=== PATIENT | female | born 1950 | race Hispanic/Latino ===

== ENCOUNTER 2018-01-31 04:11 | Inpatient (IN) | payer MEDICARE ==
[~2018-01-31] VITALS: Ht 160 cm; Wt 90.7 kg
[2018-01-31] MEDS ORDERED: PANTOPRAZOLE 40 MG 10ML VIAL IV STA (04:19)
[2018-01-31] MEDS ORDERED: ONDANSETRON HCL INJ 2 MG/ML VIAL IV STA (04:19)
[2018-01-31] MEDS ORDERED: ONDANSETRON HCL 4 MG ORAL DISINTEGRATING TAB ONE (04:25)
--- NOTE | 2018-01-31 04:25 | NUR ---
HAVING DIFFICULT TIME STARTING IV, PT HX OF DIFFICULT STICK, ACTIVELY VOMITING. MEDICATED WITH ZOFRAN ODT WHILE CONTINUING TO SEARCH FOR IV ACCESS
[2018-01-31] MEDS ORDERED: DIATRIZOATE MEGL/DIATRIZOA SOD 30 ML BTL PO ONE (04:27)
[2018-01-31] MEDS ORDERED: SODIUM CHLORIDE 0.9% 500ML 500 ML IV ONE (04:30)
[2018-01-31] MEDS ORDERED: SODIUM CHLORIDE 0.9% 1000ML 1,000 ML IV SCH (04:30)
--- NOTE | 2018-01-31 04:35 | NUR ---
18G R EJ STARTED PER SARA FONTANEZ LVN. PT TOLERATED WELL
--- NOTE | 2018-01-31 04:42 | NUR ---
MEDICATED PER ORDERS. PO CONTRAST AT BEDSIDE. PT'S SON SPOKE WITH PT IN [place] REGARDING NEED TO DRINK PO CONTRAST, VERBALIZED UNDERSTANDING.
[2018-01-31] MEDS ORDERED: ONDANSETRON HCL 4 MG ORAL DISINTEGRATING TAB PO ONE (04:45)
[2018-01-31 04:50] LABS: BASOPHILS % 0.1 % (0.0-1.0); EOSINOPHILS % 0.2 % (0.0-6.0); HEMATOCRIT 35.2 % (34.2-44.1); HEMOGLOBIN 10.4 g/dL (12.0-16.0); LYMPHOCYTES # (AUTO) 0.4 (1.0-3.2); LYMPHOCYTES % 3.2 % (18.0-39.1); MEAN CORPUSCULAR HEMOGLOBIN 23.1 pg (28-32); MEAN CORPUSCULAR HGB CONC 29.5 g/dL (31-35); MONOCYTES # (AUTO) 0.5 (0.2-0.8); MONOCYTES % 4.2 % (4.4-11.3); NEUTROPHILS % 91.3 % (38.7-80.0); PLATELET COUNT 174 x10e3/uL (140-360); RED BLOOD COUNT 4.51 x10e6/uL (3.6-5.1); RED CELL DISTRIBUTION WIDTH 19.1 % (11.7-14.4)
[2018-01-31 04:57] LABS: INR 1.33; PROTHROMBIN TIME 17.6 seconds (11.9-14.5)
[2018-01-31] MEDS ORDERED: K DUR10 MEQ PO (04:59)
[2018-01-31] MEDS ORDERED: LASIX40 MG PO (04:59)
[2018-01-31] MEDS ORDERED: CALCITRIOL0.25 MCG PO (04:59)
[2018-01-31] MEDS ORDERED: OMEPRAZOLE40 MG PO (04:59)
[2018-01-31] MEDS ORDERED: MAGNESIUM OXID400 MG PO (04:59)
[2018-01-31] MEDS ORDERED: GABAPENTIN400 MG PO (04:59)
[2018-01-31] MEDS ORDERED: FUROSEMIDE40 MG PO (04:59)
[2018-01-31] MEDS ORDERED: PREDNISONE5 MG PO (04:59)
[2018-01-31] MEDS ORDERED: ULTRAM 50MG50 MG PO (04:59)
[2018-01-31] MEDS ORDERED: MYCOPHENOLATE250 MG PO (04:59)
[2018-01-31] MEDS ORDERED: METFORMIN HCL500 MG PO (04:59)
[2018-01-31] MEDS ORDERED: LOSARTAN POTASS50 MG PO (04:59)
[2018-01-31] MEDS ORDERED: TACROLIMUS1 MG PO (04:59)
[2018-01-31] MEDS ORDERED: SIMVASTATIN20 MG PO (04:59)
[2018-01-31] MEDS ORDERED: LEXAPRO10 MG PO (04:59)
[2018-01-31] MEDS ORDERED: METOCLOPRAMIDE10 MG PO (04:59)
[2018-01-31] MEDS ORDERED: NIFEDIPINE ER30 M1 PO (04:59)
[2018-01-31] MEDS ORDERED: GABAPENTIN300 MG PO (04:59)
[2018-01-31] MEDS ORDERED: CALCIUM CARBON500 MG PO (04:59)
[2018-01-31] MEDS ORDERED: ELIQUIS PO (04:59)
[2018-01-31 05:03] LABS: ALBUMIN 3.5 g/dL (3.5-5.0); ANION GAP 17.7 mmol/L (8-16); CALCIUM 8.7 mg/dL (8.4-10.2); CREATININE, SERUM 1.2 mg/dL (0.57-1.11); POTASSIUM 3.7 mmol/L (3.5-5.1)
[2018-01-31 05:10] LABS: CREATINE KINASE MB 0.7 ng/mL (0-5.0)
--- NOTE | 2018-01-31 05:14 | NUR ---
STATES SHE FEELS BETTER AFTER IVF BOLUS AND MEDICATIONS, DRANK APPROX 50% OF PO CONTRAST. GONE TO CT SCAN
--- NOTE | 2018-01-31 05:40 | NUR ---
16 FR [facility] CATH INSERTED USING STERILE TECHNIQUE PER Robert YEPEZ RN. ASSISTED WITH PROCEDURE ALONG WITH Robert FONTANEZ LVN INTERPRETING. 560ml CLEAR YELLOW/STRAW COLORED RETURN. DR JOHNSON INFORMED, INST TO LEAVE CATH IN PLACE FOR URINARY RETENTION. TOLERATED WELL
--- NOTE | 2018-01-31 05:45 | NUR ---
PT REPORTS PAIN IN LOWER ABD RELIEVED AFTER [facility] CATH INSERTION. AWARE
--- NOTE | 2018-01-31 05:48 | Diagnostic Imaging Report ---
CHEST SINGLE (PORTABLE), 01/31/2018 4:19 AM Technique: CHEST SINGLE (PORTABLE) Comparison: None available. Clinical history: Chest pain Findings: See Impression Impression: Limited by portable technique and soft tissue attenuation. 1. Enlarged cardiomediastinal silhouette 2. Central vascular congestion and/or mild edema. 3. No effusion or pneumothorax. Signed by: Dr Cathi Mitchell MD on 01/31/2018 5:44 AM
--- NOTE | 2018-01-31 05:57 | Diagnostic Imaging Report ---
EXAM: CT ABDOMEN/PELVIS WO DATE: 01/31/2018 4:19 AM INDICATION: ^abd pain n/v/d, oral contrast, pt has kidney transplant ^[id number] ^[id number] ^Y COMPARISON: None TECHNIQUE: The abdomen and pelvis were scanned using a multidetector helical scanner. Coronal and sagittal reformations were obtained. CT low dose techniques were utilized, as applicable. IV Contrast: 0 ml Isovue 300/370 FINDINGS: Lack of IV contrast decreases sensitivity in evaluating abdominal and pelvic organs. LOWER THORAX: Cardiomegaly with small pericardial effusion. Mosaic attenuation. Mild bibasilar opacities may reflect atelectasis and/or edema. LIVER: Enlarged hepatic veins and IVC which can be seen with passive hepatic congestion. Morphologic changes with hypertrophy of the caudate and recanalized paraumbilical vein suggesting underlying cardiac cirrhosis. GALLBLADDER: Surgically absent SPLEEN: Spleen upper limits of normal in size. PANCREAS: Fatty replaced ADRENALS: Indeterminate 3.4 cm left adrenal nodule (attenuation 40). Slightly nodular right adrenal. KIDNEYS: Atrophic need of kidneys. Right lower quadrant renal transplant without hydronephrosis. GI TRACT: There is mild small bowel wall thickening. No evidence of obstruction. Incidental diverticulosis and normal appendix. VESSELS: Diffuse atherosclerotic calcifications PERITONEUM/RETROPERITONEUM: No free air or fluid LYMPH NODES: No lymphadenopathy REPRODUCTIVE ORGANS/BLADDER: Unremarkable SOFT TISSUES: Postsurgical changes along the anterior abdominal wall. Several fat-containing ventral hernias. BONES: No suspicious bone lesions. IMPRESSION: 1. Findings of enteritis, likely infectious or inflammatory. 2. Indeterminate left adrenal nodule (3.4 cm). Recommend nonemergent follow-up CT adrenal mass protocol. 3. Atrophic [place] kidneys. Right lower quadrant renal transplant without hydronephrosis. 4. Findings suspicious for cardiac cirrhosis. Signed by: Dr Cathi Mitchell MD on 01/31/2018 5:54 AM
[2018-01-31 06:04] LABS: CLARITY,URINE SL CLOUDY (CLEAR); COLOR,URINE YELLOW (YELLOW); LEUKOCYTE ESTERASE ,URINE NEGATIVE (NEGATIVE); NITRITE,URINE NEGATIVE (NEGATIVE); PROTEIN,URINE DIPSTICK 1+ (NEGATIVE)
[2018-01-31 06:05] LABS: BILIRUBIN,URINE NEGATIVE (NEGATIVE); KETONES,URINE NEGATIVE (NEGATIVE); URINE UROBILINOGEN 0.2 mg/dL (0.2 - 1)
[2018-01-31] MEDS ORDERED: SODIUM CHLORIDE 0.9% 1000ML 1,000 ML IV ONE (06:15)
[2018-01-31] MEDS ORDERED: DEXTROSE 50% SYRINGE 50 ML IV PRN (06:15)
[2018-01-31] MEDS ORDERED: FUROSEMIDE 40 MG TAB PO PRN (06:15)
[2018-01-31] MEDS ORDERED: METRONIDAZOLE 500MG/NS 100ML 100 ML IV ONE (06:18)
[2018-01-31 06:21] LABS: BACTERIA,URINE RARE /HPF; EPITHELIAL CELLS,URINE RARE /LPF; WBC,URINE (MAN) 0-5 /HPF (0-5)
--- OUTSIDE RECORDS SUMMARY | 2018-01-31 06:21 | XMS REPORT | Clinical Summary ---
Author Author [facility] Organization [facility] Address Unknown Phone Unavailable Care Team Providers Care Animal Ride Manager Name Role Phone Mary Kay Hicks MD PCP Allergies Comments Active Allergy Reactions Severity Noted Date Penicillins Shortness Of High 07/14/2015 Breath Medications End Date Status Medication Sig Dispensed Refills Start Date Active simvastatin (ZOCOR) 20 MG Take 20 mg by 0 tablet mouth nightly. Active magnesium oxide (MAG-OX) Take 400 mg 0 400 mg tablet by mouth 2 (two) times a day. Active escitalopram (LEXAPRO) 20 Take 10 mg by 0 MG tablet mouth every morning. Active tacrolimus (PROGRAF) 1 MG Take 3 mg by 0 capsule mouth 2 (two) times a day. PT takes in the morning and in the evening Active mycophenolate (CELLCEPT) Take 500 mg 0 500 mg tablet by mouth every 12 (twelve) hours. Active predniSONE (DELTASONE) 5 Take 5 mg by 0 mg tablet mouth daily with breakfast. Active calcitriol (ROCALTROL) Take 0.25 mcg 0 0.25 MCG capsule by mouth every morning. Active aspirin (ECOTRIN) 81 MG Take 81 mg by 0 enteric coated tablet mouth every morning. Active apixaban (ELIQUIS) 5 mg Take 5 mg by 0 tablet mouth 2 (two) times a day. Active metoclopramide (REGLAN) Take 0.5 90 tablet 3 10 MG tablet tablets (5 mg 7 total) by mouth nightly. Active NIFEdipine XL (PROCARDIA Take 60 mg by 0 XL) 60 MG 24 hr tablet mouth daily with dinner. Active potassium chloride Take 20 mEq 2 (K-DUR) 20 MEQ CR tablet by mouth 7 daily. Active metFORMIN (GLUCOPHAGE) Take 500 mg 1 500 mg tablet by mouth 2 7 (two) times a day with meals. Active LEVEMIR FLEXTOUCH 100 Inject 15 3 unit/mL (3 mL) insulin Units under 7 pen the skin 2 (two) times a day. Active NOVOLOG FLEXPEN 100 Inject 12 2 unit/mL insulin pen Units under 7 the skin 2 (two) times a day. Active calcium carbonate-vitamin Take 1 tablet 0 D3 (CALCIUM 600 + D,3,) by mouth 2 600 mg(1,500mg) -400 unit (two) times a per tablet day with meals. Active gabapentin (NEURONTIN) Take 300 mg 1 300 mg capsule by mouth 7 daily. Active losartan (COZAAR) 50 MG TAKE 1 TABLET 90 tablet 1 tablet BY MOUTH ONCE 7 DAILY Active furosemide (LASIX) 40 mg Take 40 mg by 0 tablet mouth 2 (two) times a day. Active furosemide (LASIX) 80 mg Take 80 mg by 0 tablet mouth daily as needed. If she weighs over 200lbs she takes 80mg 02/10/2018 Active lidocaine (LIDODERM) 5 % Place 1 patch 30 patch 0 on the skin 8 daily for 30 days. Remove & Discard patch within 12 hours or as directed by MD Active omeprazole (PriLOSEC) 20 Take 20 mg by 0 MG capsule mouth daily. 12/06/2017 Discontinued omeprazole (PriLOSEC) 20 Take 20 mg by 0 MG capsule mouth daily before breakfast. 08/01/2017 Discontinued gabapentin (NEURONTIN) Take 400 mg 0 400 mg capsule by mouth nightly as needed (neuropathy). 05/15/2017 Discontinued metOLazone (ZAROXOLYN) 5 Take 5 mg by 1 MG tablet mouth daily 7 as needed. 03/08/2017 Discontinued ondansetron (ZOFRAN, Take 1 tablet 10 tablet 0 HYDROCHLORIDE,) 4 MG (4 mg total) 7 tablet by mouth every 8 (eight) hours as needed for nausea or vomiting for up to 30 days. 03/08/2017 Discontinued dicyclomine (BENTYL) 20 Take 1 tablet 10 tablet 0 mg tablet (20 mg total) 7 by mouth 2 (two) times a day for 30 days. 02/19/2017 metroNIDAZOLE (FLAGYL) Take 1 tablet 21 tablet 0 500 MG tablet (500 mg 8 total) by mouth 3 (three) times a day for 7 days. 04/07/2017 dicyclomine (BENTYL) 20 Take 1 tablet 10 tablet 0 mg tablet (20 mg total) 8 by mouth 2 (two) times a day for 30 days. 04/07/2017 ondansetron (ZOFRAN, Take 1 tablet 10 tablet 0 HYDROCHLORIDE,) 4 MG (4 mg total) 8 tablet by mouth every 8 (eight) hours as needed for nausea or vomiting for up to 30 days. 04/07/2017 ferrous sulfate 325 (65 Take 1 tablet 60 tablet 0 FE) MG tablet (325 mg 8 total) by mouth 2 (two) times a day with meals for 30 days. 04/07/2017 furosemide (LASIX) 40 mg Take 1 tablet 60 tablet 0 tablet (40 mg total) 8 by mouth 2 (two) times a day for 30 days. 06/16/2017 metOLazone (ZAROXOLYN) 5 Take 1 tablet 8 tablet 0 MG tablet (5 mg total) 8 by mouth 2 (two) times a week for 30 days. Mondays and fridays06/14/2017 furosemide (LASIX) 40 mg Take 1 tablet 60 tablet 0 tablet (40 mg total) 8 by mouth 2 (two) times a day for 30 days. 06/14/2017 furosemide (LASIX) 40 mg Take 1 tablet 60 tablet 0 tablet (40 mg total) 8 by mouth 2 (two) times a day for 30 days. 06/27/2017 Discontinued furosemide (LASIX) 40 mg Take 40 mg by 0 tablet mouth 2 (two) times a day. 07/27/2017 furosemide (LASIX) 40 mg Take 1 tablet 60 tablet 0 tablet (40 mg total) 8 by mouth 2 (two) times a day for 30 days. 09/01/2017 spironolactone Take 1 tablet 30 tablet 0 (ALDACTONE) 100 MG tablet (100 mg 8 total) by mouth daily for 30 days. 01/11/2018 Discontinued pantoprazole (PROTONIX) Take 1 tablet 60 tablet 0 40 MG EC tablet (40 mg total) 8 by mouth 2 (two) times a day for 30 days. 01/18/2018 traMADol (ULTRAM) 50 mg Take 1 tablet 0 tablet (50 mg total) 8 by mouth every 6 (six) hours as needed for severe pain for up to 7 days. 01/15/2018 Discontinued pantoprazole (PROTONIX) Take 1 tablet 60 tablet 0 40 MG EC tablet (40 mg total) 8 by mouth 2 (two) times a day for 30 days. Active Problems Problem Noted Date Acute blood loss anemia 12/04/2017 Hematochezia 12/04/2017 Rectal bleeding 12/02/2017 Hypervolemia 08/24/2017 Acute systolic congestive heart failure 06/25/2017 Hypokalemia 03/06/2017 Pneumonia due to infectious organism 03/04/2017 Weakness 02/10/2017 Acute on chronic congestive heart failure 10/22/2016 Congestive heart failure 08/30/2016 Pneumonia 08/22/2016 Fever 08/22/2016 Dyspnea 08/20/2016 Atrial fibrillation 08/20/2016 Coronary artery disease 08/08/2016 Hypertension 08/08/2016 DM (diabetes mellitus) 08/08/2016 Hyponatremia 08/06/2016 Coag negative Staphylococcus bacteremia 06/05/2016 Kidney transplant status, cadaveric 06/05/2016 Immunosuppressed status 06/05/2016 CKD stage G3a/A2, GFR 45-59 and albumin creatinine ratio 30-299 mg/g 06/05/2016 CHF (congestive heart failure) 06/03/2016 Dehydration 04/11/2016 Encounters Care Team Description Date Type Specialty Eve Miles MD Teqwimuah, Remy, DO Al-Lahiq, Maha, MD Acute systolic congestive heart failure (HCC) (Primary Dx); Renal transplant recipient; Kidney transplant status, cadaveric; CKD stage G3a/A2, GFR 45-59 and albumin creatinine ratio 30-299 mg/g (HCC) 01/15/2018 [facility] General Internal Medicine - Encounter 01/18/2018 Nahid Thibodeaux MD Teqwimuah, Remy, DO Congestive heart failure, unspecified HF chronicity, unspecified heart failure type (HCC) (Primary Dx); SOB (shortness of breath); Renal transplant disorder; Persistent atrial fibrillation (HCC); On continuous oral anticoagulation; Diabetes mellitus of other type with complication, unspecified whether [facility] insulin use (HCC); Secondary hypertension 01/05/2018 Hospital General Surgery - Encounter 01/11/2018 Drew Andrade MD COLONOSCOPY 12/04/2017 Surgery Gastroenterology Odilon Garcia MD 12/04/2017 Anesthesia Gastroenterology Event Katie Beckett PA-C Al-Lahiq, Maha, MD Zachariah, Philip Tomy, MD Teqwimuah, Remy, DO Rectal bleeding (Primary Dx); Chronic systolic congestive heart failure (HCC); Generalized weakness; Anemia, unspecified type; Hematochezia 12/02/2017 [facility] General Internal Medicine - Encounter 12/06/2017 Eve Miles MD Al-Lahiq, Maha, MD Acute systolic congestive heart failure (Primary Dx) 11/06/2017 [facility] General Internal Medicine - Encounter 11/12/2017 Denise Worley MD 11/02/2017 Refill Endocrinology Marine Sharma MD Teqwimuah, Remy, DO Acute on chronic congestive heart failure, unspecified congestive heart failure type (Primary Dx); Acute on chronic diastolic congestive heart failure 10/24/2017 Emergency General Surgery - 10/26/2017 Marine Sharma MD Al-Lahiq, Maha, MD Hypervolemia, unspecified hypervolemia type (Primary Dx); Acute on chronic congestive heart failure, unspecified congestive heart failure type; Other hypervolemia; Kidney transplant status, cadaveric; CKD stage G3a/A2, GFR 45-59 and albumin creatinine ratio 30-299 mg/g; Hypertension, unspecified type 08/24/2017 [facility] General Internal Medicine - Encounter 08/27/2017 Bon Ahumada MD Teqwimuah, Remy, DO Dyspnea, unspecified type (Primary Dx); Hypoxia; Anemia, unspecified type; Pulmonary venous congestion; Acute on chronic congestive heart failure, unspecified congestive heart failure type; Hypertension, unspecified type; H/O kidney transplant; Near syncope; Acute on chronic diastolic congestive heart failure; Weakness 07/30/2017 [facility] General Internal Medicine - Encounter 08/01/2017 Wero Warren DO Al-Lahiq, Maha, MD Acute systolic congestive heart failure (Primary Dx); Pulmonary edema cardiac cause; Kidney transplant status, cadaveric; CKD stage G3a/A2, GFR 45-59 and albumin creatinine ratio 30-299 mg/g 07/04/2017 [facility] General Internal Medicine - Encounter 07/08/2017 Wero Warren DO Teqwimuah, Remy, DO Acute systolic congestive heart failure (Primary Dx); Hypoxia; Acute on chronic diastolic congestive heart failure 06/25/2017 [facility] General Internal Medicine - Encounter 06/27/2017 Arlene Faye MD Abdellatif, Abdul A., MD Teqwimuah, Remy, DO Al-Lahiq, Maha, MD Acute on chronic congestive heart failure, unspecified congestive heart failure type (Primary Dx); Essential hypertension; SOB (shortness of breath); Acute on chronic diastolic congestive heart failure 05/13/2017 Emergency General Surgery - 05/15/2017 Adalgisa Borjas RN Med Refill 04/11/2017 Refill Transplant Marine Sharma MD Teqwimuah, Remy, DO Pneumonia due to infectious organism, unspecified laterality, unspecified part of lung (Primary Dx); Acute on chronic congestive heart failure, unspecified congestive heart failure type; Acute on chronic diastolic congestive heart failure 03/04/2017 [facility] General Internal Medicine - Encounter 03/08/2017 Marine Sharma MD Teqwimuah, Remy, DO Weakness (Primary Dx); Rectal bleeding; Hyperglycemia 02/10/2017 Emergency General Surgery - 02/12/2017 Wero Warren DO Viral gastroenteritis (Primary Dx); Hyperglycemia 02/04/2017 Emergency Emergency Medicine after 01/30/2017 Immunizations Name Dates Previously Given Next Due FLUCELVAX QUAD PF (0.5mL 10/25/2017, 12/09/2016 syringe) Family History Medical History Relation Name Comments Diabetes Brother Hypertension Brother No Known Problems Father Diabetes Mother Hypertension Mother Diabetes Sister Hypertension Sister Relation Name Status Comments Brother Father Mother Sister Social History Date Tobacco Use Types Packs/Day Years Used Never Smoker Smokeless Tobacco: Never Used Alcohol Use Drinks/Week oz/Week Comments No Sex Assigned at Date Recorded Not on file Industry Job Start Date Occupation Not on file Not on file Not on file Travel End Travel History Travel Start No recent travel history available. Last Filed Vital Signs Time Taken Vital Sign Reading 01/18/2018 11:34 AM [employer]OTECTIVE SIGNAL SUPERINTENDENT Blood Pressure 139/65 01/18/2018 11:34 AM PROTECTIVE SIGNAL SUPERINTENDENT Pulse 70 01/18/2018 11:34 AM PROTECTIVE SIGNAL SUPERINTENDENT Temperature 37 C (98.6 F) 01/18/2018 11:34 AM PROTECTIVE SIGNAL SUPERINTENDENT Respiratory Rate 18 01/18/2018 11:34 AM PROTECTIVE SIGNAL SUPERINTENDENT Oxygen Saturation 93% - Inhaled Oxygen - Concentration 01/15/2018 5:37 AM PROTECTIVE SIGNAL SUPERINTENDENT Weight 97.5 kg (215 lb) 01/15/2018 5:37 AM PROTECTIVE SIGNAL SUPERINTENDENT Height 162.6 cm (5' 4") 01/15/2018 5:37 AM PROTECTIVE SIGNAL SUPERINTENDENT Body Mass Index 36.9 Plan of Treatment Health Maintenance Due Date Last Done Comments DIABETIC RETINAL EYE EXAM 1952 DIABETIC FOOT EXAM 1962 CERVICAL CANCER SCREENING 1973 COLON CANCER SCREENING 2002 SHINGLES VACCINES (1 of 2002 2) BREAST CANCER SCREENING 10/04/2015 10/03/2013, 04/07/2010 PNEUMOCOCCAL 2017 POLYSACCHARIDE VACCINE AGE 65 AND OVER PNEUMOCOCCAL-13 2017 INFLUENZA VACCINE Completed 10/25/2017, 12/09/2016 Procedures Comments Procedure Name Priority Date/Time Associated Diagnosis POC GLUCOSE Routine 01/18/2018 11:07 AM PROTECTIVE SIGNAL SUPERINTENDENT POC GLUCOSE Routine 01/18/2018 6:23 AM PROTECTIVE SIGNAL SUPERINTENDENT POC GLUCOSE Routine 01/18/2018 5:54 AM PROTECTIVE SIGNAL SUPERINTENDENT ESTIMATED GFR Routine 01/18/2018 5:20 AM PROTECTIVE SIGNAL SUPERINTENDENT COMPREHENSIVE METABOLIC Routine 01/18/2018 PANEL 5:20 AM PROTECTIVE SIGNAL SUPERINTENDENT POC GLUCOSE Routine 01/17/2018 8:13 PM PROTECTIVE SIGNAL SUPERINTENDENT POC GLUCOSE Routine 01/17/2018 4:18 PM PROTECTIVE SIGNAL SUPERINTENDENT POC GLUCOSE Routine 01/17/2018 11:08 AM PROTECTIVE SIGNAL SUPERINTENDENT POC GLUCOSE Routine 01/17/2018 5:25 AM PROTECTIVE SIGNAL SUPERINTENDENT POC GLUCOSE Routine 01/16/2018 8:11 PM PROTECTIVE SIGNAL SUPERINTENDENT POC GLUCOSE Routine 01/16/2018 3:44 PM PROTECTIVE SIGNAL SUPERINTENDENT POC GLUCOSE Routine 01/16/2018 11:02 AM PROTECTIVE SIGNAL SUPERINTENDENT MAGNESIUM LEVEL Routine 01/16/2018 6:15 AM PROTECTIVE SIGNAL SUPERINTENDENT URIC ACID LEVEL Routine 01/16/2018 6:15 AM PROTECTIVE SIGNAL SUPERINTENDENT PHOSPHORUS LEVEL Routine 01/16/2018 6:15 AM PROTECTIVE SIGNAL SUPERINTENDENT ESTIMATED GFR Routine 01/16/2018 6:15 AM PROTECTIVE SIGNAL SUPERINTENDENT COMPREHENSIVE METABOLIC Routine 01/16/2018 PANEL 6:15 AM PROTECTIVE SIGNAL SUPERINTENDENT POC GLUCOSE Routine 01/16/2018 5:32 AM PROTECTIVE SIGNAL SUPERINTENDENT POC GLUCOSE Routine 01/15/2018 8:25 PM PROTECTIVE SIGNAL SUPERINTENDENT POC GLUCOSE Routine 01/15/2018 4:48 PM PROTECTIVE SIGNAL SUPERINTENDENT TROPONIN Timed 01/15/2018 12:51 PM PROTECTIVE SIGNAL SUPERINTENDENT TROPONIN Timed 01/15/2018 9:17 AM PROTECTIVE SIGNAL SUPERINTENDENT PROTHROMBIN TIME WITH INR Routine 01/15/2018 6:40 AM PROTECTIVE SIGNAL SUPERINTENDENT XR CHEST 1 VW PORTABLE STAT 01/15/2018 6:32 AM PROTECTIVE SIGNAL SUPERINTENDENT SMEAR REVIEW STAT 01/15/2018 6:11 AM PROTECTIVE SIGNAL SUPERINTENDENT ESTIMATED GFR STAT 01/15/2018 6:11 AM PROTECTIVE SIGNAL SUPERINTENDENT B NATRIURETIC PEPTIDE STAT 01/15/2018 6:11 AM PROTECTIVE SIGNAL SUPERINTENDENT TROPONIN STAT 01/15/2018 6:11 AM PROTECTIVE SIGNAL SUPERINTENDENT COMPREHENSIVE METABOLIC STAT 01/15/2018 PANEL 6:11 AM PROTECTIVE SIGNAL SUPERINTENDENT HC COMPLETE BLD COUNT STAT 01/15/2018 W/AUTO DIFF 6:11 AM PROTECTIVE SIGNAL SUPERINTENDENT ECG ED PRELIMINARY Routine 01/15/2018 INTERPRETATION 6:00 AM PROTECTIVE SIGNAL SUPERINTENDENT ECG 12-LEAD STAT 01/15/2018 5:38 AM PROTECTIVE SIGNAL SUPERINTENDENT POC GLUCOSE Routine 01/11/2018 4:24 PM PROTECTIVE SIGNAL SUPERINTENDENT POC GLUCOSE Routine 01/11/2018 12:15 PM PROTECTIVE SIGNAL SUPERINTENDENT SMEAR REVIEW STAT 01/11/2018 8:16 AM PROTECTIVE SIGNAL SUPERINTENDENT ESTIMATED GFR Routine 01/11/2018 8:16 AM PROTECTIVE SIGNAL SUPERINTENDENT HC COMPLETE BLD COUNT STAT 01/11/2018 W/AUTO DIFF 8:16 AM PROTECTIVE SIGNAL SUPERINTENDENT BASIC METABOLIC PANEL Routine 01/11/2018 8:16 AM PROTECTIVE SIGNAL SUPERINTENDENT POC GLUCOSE Routine 01/11/2018 5:23 AM PROTECTIVE SIGNAL SUPERINTENDENT POC GLUCOSE Routine 01/10/2018 11:40 PM PROTECTIVE SIGNAL SUPERINTENDENT POC GLUCOSE Routine 01/10/2018 7:55 PM PROTECTIVE SIGNAL SUPERINTENDENT POC GLUCOSE Routine 01/10/2018 4:57 PM PROTECTIVE SIGNAL SUPERINTENDENT POC GLUCOSE Routine 01/10/2018 11:59 AM PROTECTIVE SIGNAL SUPERINTENDENT SMEAR REVIEW STAT 01/10/2018 10:17 AM PROTECTIVE SIGNAL SUPERINTENDENT ESTIMATED GFR Routine 01/10/2018 10:17 AM PROTECTIVE SIGNAL SUPERINTENDENT HC COMPLETE BLD COUNT STAT 01/10/2018 W/AUTO DIFF 10:17 AM PROTECTIVE SIGNAL SUPERINTENDENT BASIC METABOLIC PANEL Routine 01/10/2018 10:17 AM PROTECTIVE SIGNAL SUPERINTENDENT POC GLUCOSE Routine 01/10/2018 5:59 AM PROTECTIVE SIGNAL SUPERINTENDENT POC GLUCOSE Routine 01/09/2018 8:12 PM PROTECTIVE SIGNAL SUPERINTENDENT POC GLUCOSE Routine 01/09/2018 5:05 PM PROTECTIVE SIGNAL SUPERINTENDENT POC GLUCOSE Routine 01/09/2018 1:44 PM PROTECTIVE SIGNAL SUPERINTENDENT POC GLUCOSE Routine 01/09/2018 1:02 PM PROTECTIVE SIGNAL SUPERINTENDENT POC GLUCOSE Routine 01/09/2018 12:07 [address] [employer]ENT CT CHEST WO CONTRAST Routine 01/09/2018 9:26 AM PROTECTIVE SIGNAL SUPERINTENDENT POC GLUCOSE Routine 01/09/2018 5:42 AM PROTECTIVE SIGNAL SUPERINTENDENT SMEAR REVIEW Routine 01/09/2018 4:57 AM PROTECTIVE SIGNAL SUPERINTENDENT ESTIMATED GFR Routine 01/09/2018 4:57 AM PROTECTIVE SIGNAL SUPERINTENDENT HC COMPLETE BLD COUNT Routine 01/09/2018 W/AUTO DIFF 4:57 AM PROTECTIVE SIGNAL SUPERINTENDENT BASIC METABOLIC PANEL Routine 01/09/2018 4:57 AM PROTECTIVE SIGNAL SUPERINTENDENT POC GLUCOSE Routine 01/08/2018 8:36 PM PROTECTIVE SIGNAL SUPERINTENDENT POC GLUCOSE Routine 01/08/2018 4:42 PM PROTECTIVE SIGNAL SUPERINTENDENT POC GLUCOSE Routine 01/08/2018 11:43 AM PROTECTIVE SIGNAL SUPERINTENDENT POC GLUCOSE Routine 01/08/2018 7:32 AM PROTECTIVE SIGNAL SUPERINTENDENT XR CHEST 1 VW PORTABLE Routine 01/08/2018 6:42 AM PROTECTIVE SIGNAL SUPERINTENDENT ESTIMATED GFR Routine 01/08/2018 4:55 AM PROTECTIVE SIGNAL SUPERINTENDENT PHOSPHORUS LEVEL Routine 01/08/2018 4:55 AM PROTECTIVE SIGNAL SUPERINTENDENT MAGNESIUM LEVEL Routine 01/08/2018 4:55 AM PROTECTIVE SIGNAL SUPERINTENDENT COMPREHENSIVE METABOLIC Routine 01/08/2018 PANEL 4:55 AM PROTECTIVE SIGNAL SUPERINTENDENT POC GLUCOSE Routine 01/07/2018 8:32 PM PROTECTIVE SIGNAL SUPERINTENDENT POC GLUCOSE Routine 01/07/2018 5:22 PM PROTECTIVE SIGNAL SUPERINTENDENT POC GLUCOSE Routine 01/07/2018 11:24 AM PROTECTIVE SIGNAL SUPERINTENDENT POC GLUCOSE Routine 01/07/2018 8:56 AM PROTECTIVE SIGNAL SUPERINTENDENT POC GLUCOSE Routine 01/07/2018 7:28 AM PROTECTIVE SIGNAL SUPERINTENDENT XR CHEST 1 VW PORTABLE Routine 01/07/2018 6:24 AM PROTECTIVE SIGNAL SUPERINTENDENT SMEAR REVIEW Routine 01/07/2018 4:45 AM PROTECTIVE SIGNAL SUPERINTENDENT ESTIMATED GFR Routine 01/07/2018 4:45 AM PROTECTIVE SIGNAL SUPERINTENDENT LACTIC ACID LEVEL Routine 01/07/2018 4:45 AM PROTECTIVE SIGNAL SUPERINTENDENT MAGNESIUM LEVEL Routine 01/07/2018 4:45 AM PROTECTIVE SIGNAL SUPERINTENDENT BASIC METABOLIC PANEL Routine 01/07/2018 4:45 AM PROTECTIVE SIGNAL SUPERINTENDENT HC COMPLETE BLD COUNT Routine 01/07/2018 W/AUTO DIFF 4:45 AM PROTECTIVE SIGNAL SUPERINTENDENT POC GLUCOSE Routine 01/06/2018 8:08 PM PROTECTIVE SIGNAL SUPERINTENDENT ECG 12-LEAD Routine 01/06/2018 7:11 PM PROTECTIVE SIGNAL SUPERINTENDENT LACTIC ACID LEVEL Routine 01/06/2018 5:25 PM PROTECTIVE SIGNAL SUPERINTENDENT BLOOD CULTURE, AEROBIC & Routine 01/06/2018 ANAEROBIC 5:25 PM PROTECTIVE SIGNAL SUPERINTENDENT BLOOD CULTURE, AEROBIC & Routine 01/06/2018 ANAEROBIC 5:25 PM PROTECTIVE SIGNAL SUPERINTENDENT POC GLUCOSE Routine 01/06/2018 4:49 PM PROTECTIVE SIGNAL SUPERINTENDENT POC GLUCOSE Routine 01/06/2018 11:08 AM PROTECTIVE SIGNAL SUPERINTENDENT POC GLUCOSE Routine 01/06/2018 7:12 AM PROTECTIVE SIGNAL SUPERINTENDENT POC GLUCOSE Routine 01/06/2018 2:30 AM PROTECTIVE SIGNAL SUPERINTENDENT URINALYSIS SCREEN AND STAT 01/05/2018 MICROSCOPY, WITH REFLEX 10:33 PM PROTECTIVE SIGNAL SUPERINTENDENT TO CULTURE SMEAR REVIEW STAT 01/05/2018 10:15 PM PROTECTIVE SIGNAL SUPERINTENDENT ESTIMATED GFR STAT 01/05/2018 10:15 PM PROTECTIVE SIGNAL SUPERINTENDENT B NATRIURETIC PEPTIDE STAT 01/05/2018 10:15 PM PROTECTIVE SIGNAL SUPERINTENDENT TROPONIN STAT 01/05/2018 10:15 PM PROTECTIVE SIGNAL SUPERINTENDENT COMPREHENSIVE METABOLIC STAT 01/05/2018 PANEL 10:15 PM PROTECTIVE SIGNAL SUPERINTENDENT PARTIAL THROMBOPLASTIN STAT 01/05/2018 TIME (PTT) 10:15 PM PROTECTIVE SIGNAL SUPERINTENDENT PROTHROMBIN TIME WITH INR STAT 01/05/2018 10:15 PM PROTECTIVE SIGNAL SUPERINTENDENT HC COMPLETE BLD COUNT STAT 01/05/2018 W/AUTO DIFF 10:15 PM PROTECTIVE SIGNAL SUPERINTENDENT XR CHEST 1 VW PORTABLE STAT 01/05/2018 10:11 PM PROTECTIVE SIGNAL SUPERINTENDENT ECG 12-LEAD STAT 01/05/2018 9:54 PM PROTECTIVE SIGNAL SUPERINTENDENT ECG ED PRELIMINARY Routine 01/05/2018 INTERPRETATION 9:50 PM PROTECTIVE SIGNAL SUPERINTENDENT HI CRITICAL CARE, E/M Routine 01/05/2018 30-74 MINUTES 9:50 PM PROTECTIVE SIGNAL SUPERINTENDENT POC GLUCOSE Routine 12/06/2017 11:00 AM CDT POC GLUCOSE Routine 12/06/2017 6:04 AM CDT ESTIMATED GFR Routine 12/06/2017 5:45 AM CDT HC COMPLETE BLD COUNT Routine 12/06/2017 W/AUTO DIFF 5:45 AM CDT BASIC METABOLIC PANEL Routine 12/06/2017 5:45 AM CDT POC GLUCOSE Routine 12/05/2017 8:19 PM CDT POC GLUCOSE Routine 12/05/2017 4:13 PM CDT TRANSFUSE RED BLOOD CELLS Routine 12/05/2017 2:41 PM CDT TRANSFUSE RED BLOOD CELLS Routine 12/05/2017 2:37 PM CDT POC GLUCOSE Routine 12/05/2017 11:12 AM CDT HEMOGLOBIN & HEMATOCRIT Timed 12/05/2017 6:15 AM CDT POC GLUCOSE Routine 12/05/2017 5:39 AM CDT HEMOGLOBIN & HEMATOCRIT Timed 12/05/2017 12:00 AM CDT POC GLUCOSE Routine 12/04/2017 8:06 PM CDT HEMOGLOBIN & HEMATOCRIT Timed 12/04/2017 5:06 PM CDT POC GLUCOSE Routine 12/04/2017 4:29 PM CDT COLONOSCOPY 12/04/2017 GI BLEED 2:30 PM CDT SURGICAL PATHOLOGY Routine 12/04/2017 REQUEST 12:48 PM CDT POC GLUCOSE Routine 12/04/2017 11:22 AM CDT POC GLUCOSE Routine 12/04/2017 5:50 AM CDT SMEAR REVIEW Routine 12/04/2017 5:27 AM CDT ESTIMATED GFR Routine 12/04/2017 5:27 AM CDT HC COMPLETE BLD COUNT Routine 12/04/2017 W/AUTO DIFF 5:27 AM CDT BASIC METABOLIC PANEL Routine 12/04/2017 5:27 AM CDT POC GLUCOSE Routine 12/03/2017 9:08 PM CDT HEMOGLOBIN & HEMATOCRIT Timed 12/03/2017 5:55 PM CDT POC GLUCOSE Routine 12/03/2017 5:01 PM CDT POC GLUCOSE Routine 12/03/2017 11:47 AM CDT POC GLUCOSE Routine 12/03/2017 7:42 AM CDT ESTIMATED GFR Routine 12/03/2017 5:33 AM CDT BASIC METABOLIC PANEL Routine 12/03/2017 5:33 AM CDT HC COMPLETE BLD COUNT Routine 12/03/2017 W/AUTO DIFF 5:33 AM CDT POC GLUCOSE Routine 12/03/2017 2:32 AM CDT PREPARE RBC Timed 12/03/2017 2:26 AM CDT TYPE AND SCREEN Routine 12/03/2017 2:26 AM CDT HEMOGLOBIN & HEMATOCRIT Timed 12/03/2017 2:26 AM CDT HEMOGLOBIN & HEMATOCRIT Timed 12/02/2017 6:10 PM CDT POC GLUCOSE Routine 12/02/2017 6:05 PM CDT ECG ED PRELIMINARY Routine 12/02/2017 INTERPRETATION 4:[address] ABDOMEN PELVIS WO STAT 12/02/2017 CONTRAST 3:05 PM CDT ECG 12-LEAD Routine 12/02/2017 2:43 PM CDT ECG 12-LEAD STAT 12/02/2017 2:41 PM CDT XR CHEST 1 VW PORTABLE STAT 12/02/2017 2:39 PM CDT URINALYSIS SCREEN AND STAT 12/02/2017 MICROSCOPY, WITH REFLEX 2:07 PM CDT TO CULTURE URINE CULTURE STAT 12/02/2017 2:07 PM CDT B NATRIURETIC PEPTIDE STAT 12/02/2017 1:15 PM CDT TROPONIN STAT 12/02/2017 1:15 PM CDT CREATINE KINASE, TOTAL STAT 12/02/2017 (CPK) 1:15 PM CDT SMEAR REVIEW STAT 12/02/2017 1:15 PM CDT LIPASE LEVEL STAT 12/02/2017 1:15 PM CDT ESTIMATED GFR STAT 12/02/2017 1:15 PM CDT COMPREHENSIVE METABOLIC STAT 12/02/2017 PANEL 1:15 PM CDT PARTIAL THROMBOPLASTIN STAT 12/02/2017 TIME (PTT) 1:15 PM CDT PROTHROMBIN TIME WITH INR STAT 12/02/2017 1:15 PM CDT HC COMPLETE BLD COUNT STAT 12/02/2017 W/AUTO DIFF 1:15 PM CDT POC GLUCOSE Routine 11/12/2017 12:58 PM CDT POC GLUCOSE Routine 11/12/2017 6:01 AM CDT POC GLUCOSE Routine 11/12/2017 5:25 AM CDT POC GLUCOSE Routine 11/12/2017 1:15 AM CDT POC GLUCOSE Routine 11/12/2017 12:41 AM CDT POC GLUCOSE Routine 11/11/2017 8:08 PM CDT POC GLUCOSE Routine 11/11/2017 4:40 PM CDT POC GLUCOSE Routine 11/11/2017 12:47 PM CDT POC GLUCOSE Routine 11/11/2017 11:36 AM CDT ESTIMATED GFR Routine 11/11/2017 8:35 AM CDT BASIC METABOLIC PANEL Routine 11/11/2017 8:35 AM CDT FK506 LEVEL Routine 11/11/2017 8:35 AM CDT POC GLUCOSE Routine 11/11/2017 6:57 AM CDT POC GLUCOSE Routine 11/11/2017 6:29 AM CDT POC GLUCOSE Routine 11/10/2017 8:12 PM CDT POC GLUCOSE Routine 11/10/2017 3:53 PM CDT POC GLUCOSE Routine 11/10/2017 11:16 AM CDT POC GLUCOSE Routine 11/10/2017 5:23 AM CDT SMEAR REVIEW Routine 11/10/2017 5:15 AM CDT ESTIMATED GFR Routine 11/10/2017 5:15 AM CDT HC COMPLETE BLD COUNT Routine 11/10/2017 W/AUTO DIFF 5:15 AM CDT BASIC METABOLIC PANEL Routine 11/10/2017 5:15 AM CDT POC GLUCOSE Routine 11/09/2017 9:09 PM CDT POC GLUCOSE Routine 11/09/2017 5:14 PM CDT POC GLUCOSE Routine 11/09/2017 11:12 AM CDT POC GLUCOSE Routine 11/09/2017 6:05 AM CDT POC GLUCOSE Routine 11/09/2017 5:32 AM CDT POC GLUCOSE Routine 11/09/2017 2:41 AM CDT POC GLUCOSE Routine 11/08/2017 9:[address] LUMBAR SPINE WO Routine 11/08/2017 CONTRAST 8:19 PM CDT POC GLUCOSE Routine 11/08/2017 4:10 PM CDT POC GLUCOSE Routine 11/08/2017 3:12 PM CDT POC GLUCOSE Routine 11/08/2017 2:49 PM CDT POC GLUCOSE Routine 11/08/2017 11:16 AM CDT POC GLUCOSE Routine 11/08/2017 6:10 AM CDT POC GLUCOSE Routine 11/08/2017 5:29 AM CDT POC GLUCOSE Routine 11/08/2017 2:00 AM CDT POC GLUCOSE Routine 11/07/2017 9:40 PM CDT POC GLUCOSE Routine 11/07/2017 8:07 PM CDT POC GLUCOSE Routine 11/07/2017 4:01 PM CDT ECHOCARDIOGRAM 2D Routine 11/07/2017 COMPLETE W MMODE SPECTRAL 9:10 AM CDT COLOR DOPPLER (63038) TROPONIN Timed 11/07/2017 8:43 AM CDT SMEAR REVIEW Timed 11/07/2017 4:08 AM CDT ESTIMATED GFR Timed 11/07/2017 4:08 AM CDT HC COMPLETE BLD COUNT Timed 11/07/2017 W/AUTO DIFF 4:08 AM CDT COMPREHENSIVE METABOLIC Timed 11/07/2017 PANEL 4:08 AM CDT TROPONIN Timed 11/07/2017 4:08 AM CDT TROPONIN Timed 11/07/2017 12:05 AM CDT XR CHEST 1 VW PORTABLE STAT 11/06/2017 7:05 PM CDT ESTIMATED GFR STAT 11/06/2017 6:55 PM CDT B NATRIURETIC PEPTIDE STAT 11/06/2017 6:55 PM CDT CREATINE KINASE, TOTAL STAT 11/06/2017 (CPK) 6:55 PM CDT COMPREHENSIVE METABOLIC STAT 11/06/2017 PANEL 6:55 PM CDT PARTIAL THROMBOPLASTIN STAT 11/06/2017 TIME (PTT) 6:55 PM CDT PROTHROMBIN TIME WITH INR STAT 11/06/2017 6:55 PM CDT HC COMPLETE BLD COUNT STAT 11/06/2017 W/AUTO DIFF 6:55 PM CDT ECG 12-LEAD STAT 11/06/2017 6:33 PM CDT ECG ED PRELIMINARY Routine 11/06/2017 INTERPRETATION 6:30 PM CDT POC GLUCOSE Routine 10/26/2017 11:40 AM CDT SMEAR REVIEW Routine 10/26/2017 5:45 AM CDT ESTIMATED GFR Routine 10/26/2017 5:45 AM CDT MAGNESIUM LEVEL Routine 10/26/2017 5:45 AM CDT PHOSPHORUS LEVEL Routine 10/26/2017 5:45 AM CDT COMPREHENSIVE METABOLIC Routine 10/26/2017 PANEL 5:45 AM CDT HC COMPLETE BLD COUNT Routine 10/26/2017 W/AUTO DIFF 5:45 AM CDT POC GLUCOSE Routine 10/26/2017 5:24 AM CDT POC GLUCOSE Routine 10/25/2017 8:48 PM CDT POC GLUCOSE Routine 10/25/2017 3:56 PM CDT POC GLUCOSE Routine 10/25/2017 12:09 PM CDT POC GLUCOSE Routine 10/25/2017 6:22 AM CDT SMEAR REVIEW Timed 10/25/2017 5:57 AM CDT ESTIMATED GFR Timed 10/25/2017 5:57 AM CDT BASIC METABOLIC PANEL Timed 10/25/2017 5:57 AM CDT HC COMPLETE BLD COUNT Timed 10/25/2017 W/AUTO DIFF 5:57 AM CDT TROPONIN Timed 10/25/2017 5:57 AM CDT TROPONIN Timed 10/24/2017 10:44 PM CDT POC GLUCOSE Routine 10/24/2017 10:28 PM CDT TYPE AND SCREEN Routine 10/24/2017 9:00 PM CDT XR CHEST 1 VW PORTABLE STAT 10/24/2017 7:01 PM CDT ECG ED PRELIMINARY Routine 10/24/2017 INTERPRETATION 6:40 PM CDT SMEAR REVIEW STAT 10/24/2017 6:40 PM CDT ESTIMATED GFR STAT 10/24/2017 6:40 PM CDT B NATRIURETIC PEPTIDE STAT 10/24/2017 6:40 PM CDT TROPONIN STAT 10/24/2017 6:40 PM CDT COMPREHENSIVE METABOLIC STAT 10/24/2017 PANEL 6:40 PM CDT PARTIAL THROMBOPLASTIN STAT 10/24/2017 TIME (PTT) 6:40 PM CDT PROTHROMBIN TIME WITH INR STAT 10/24/2017 6:40 PM CDT HC COMPLETE BLD COUNT STAT 10/24/2017 W/AUTO DIFF 6:40 PM CDT ECG 12-LEAD STAT 10/24/2017 6:35 PM CDT POC GLUCOSE Routine 08/27/2017 3:55 PM CDT POC GLUCOSE Routine 08/27/2017 3:20 PM CDT POC GLUCOSE Routine 08/27/2017 11:41 AM CDT POC GLUCOSE Routine 08/27/2017 6:22 AM CDT POC GLUCOSE Routine 08/27/2017 5:37 AM CDT POC GLUCOSE Routine 08/26/2017 8:27 PM CDT POC GLUCOSE Routine 08/26/2017 4:50 PM CDT POC GLUCOSE Routine 08/26/2017 11:01 AM CDT POC GLUCOSE Routine 08/26/2017 5:44 AM CDT POC GLUCOSE Routine 08/26/2017 5:26 AM CDT ZZESTIMATED GFR Routine 08/26/2017 4:34 AM CDT BASIC METABOLIC PANEL Routine 08/26/2017 4:34 AM CDT POC GLUCOSE Routine 08/25/2017 8:07 PM CDT POC GLUCOSE Routine 08/25/2017 4:20 PM CDT CHERRIE TITER Routine 08/25/2017 4:12 PM CDT CENTROMERE ANTIBODY Routine 08/25/2017 4:12 PM CDT C-REACTIVE PROTEIN Routine 08/25/2017 4:12 PM CDT SEDIMENTATION RATE Routine 08/25/2017 4:12 PM CDT CRP HIGH SENSITIVITY Routine 08/25/2017 4:12 PM CDT ANTI-NEUTROPHILIC Routine 08/25/2017 CYTOPLASMIC ABS PANEL 4:12 PM CDT HYPERSENSITIVITY Routine 08/25/2017 PNEUMONITIS I 4:12 PM CDT HYPERSENSITIVITY Routine 08/25/2017 PNEUMONITIS II 4:12 PM CDT SCL-70 ANTIBODY Routine 08/25/2017 4:12 PM CDT RHEUMATOID FACTOR Routine 08/25/2017 4:12 PM CDT DNA AB SCREEN Routine 08/25/2017 4:12 PM CDT CHERRIE Routine 08/25/2017 4:12 PM CDT POC GLUCOSE Routine 08/25/2017 11:41 AM CDT B NATRIURETIC PEPTIDE Routine 08/25/2017 4:17 AM CDT ZZESTIMATED GFR Timed 08/25/2017 4:17 AM CDT BASIC METABOLIC PANEL Timed 08/25/2017 4:17 AM CDT HC COMPLETE BLD COUNT Timed 08/25/2017 W/AUTO DIFF 4:17 AM CDT TROPONIN Timed 08/25/2017 4:17 AM CDT TROPONIN Timed 08/24/2017 11:11 PM CDT XR CHEST 1 VW PORTABLE STAT 08/24/2017 6:55 PM CDT ZZESTIMATED GFR STAT 08/24/2017 6:50 PM CDT B NATRIURETIC PEPTIDE STAT 08/24/2017 6:50 PM CDT TROPONIN STAT 08/24/2017 6:50 PM CDT COMPREHENSIVE METABOLIC STAT 08/24/2017 PANEL 6:50 PM CDT HC COMPLETE BLD COUNT STAT 08/24/2017 W/AUTO DIFF 6:50 PM CDT ECG ED PRELIMINARY Routine 08/24/2017 INTERPRETATION 6:42 PM CDT ECG 12-LEAD Routine 08/24/2017 6:25 PM CDT POC GLUCOSE Routine 08/01/2017 11:21 AM CDT HC COMPLETE BLD COUNT STAT 08/01/2017 W/AUTO DIFF 8:37 AM CDT POC GLUCOSE Routine 08/01/2017 5:24 AM CDT ZZESTIMATED GFR Routine 08/01/2017 5:10 AM CDT BASIC METABOLIC PANEL Routine 08/01/2017 5:10 AM CDT B NATRIURETIC PEPTIDE Routine 08/01/2017 5:10 AM CDT POC GLUCOSE Routine 08/01/2017 2:00 AM CDT POC GLUCOSE Routine 08/01/2017 1:37 AM CDT POC GLUCOSE Routine 08/01/2017 1:13 AM CDT POC GLUCOSE Routine 07/31/2017 8:00 PM CDT ECHOCARDIOGRAM 2D Routine 07/31/2017 COMPLETE W MMODE SPECTRAL 5:15 PM CDT COLOR DOPPLER ([id number]) POC GLUCOSE Routine 07/31/2017 3:55 PM CDT POC GLUCOSE Routine 07/31/2017 10:58 AM CDT INFLUENZA ANTIGEN Routine 07/31/2017 10:35 AM CDT POC GLUCOSE Routine 07/31/2017 5:22 AM CDT ZZESTIMATED GFR Timed 07/31/2017 4:23 AM CDT COMPREHENSIVE METABOLIC Timed 07/31/2017 PANEL 4:23 AM CDT HC COMPLETE BLD COUNT Timed 07/31/2017 W/AUTO DIFF 4:23 AM CDT TROPONIN Timed 07/31/2017 4:23 AM CDT TROPONIN Timed 07/31/2017 12:40 AM CDT URINALYSIS SCREEN AND Routine 07/30/2017 MICROSCOPY, WITH REFLEX 11:25 PM CDT TO CULTURE GRAM STAIN Routine 07/30/2017 11:25 PM CDT URINE CULTURE Routine 07/30/2017 11:25 PM CDT POC GLUCOSE Routine 07/30/2017 11:07 PM CDT BLOOD CULTURE, AEROBIC & Routine 07/30/2017 ANAEROBIC 11:[address] HEAD WO CONTRAST STAT 07/30/2017 10:25 PM CDT BLOOD CULTURE, AEROBIC & Routine 07/30/2017 ANAEROBIC 9:57 PM CDT XR CHEST 1 VW PORTABLE STAT 07/30/2017 9:06 PM CDT ZZESTIMATED GFR STAT 07/30/2017 9:02 PM CDT HC COMPLETE BLD COUNT STAT 07/30/2017 W/AUTO DIFF 9:02 PM CDT B NATRIURETIC PEPTIDE STAT 07/30/2017 9:02 PM CDT TROPONIN STAT 07/30/2017 9:02 PM CDT MAGNESIUM LEVEL STAT 07/30/2017 9:02 PM CDT PHOSPHORUS LEVEL STAT 07/30/2017 9:02 PM CDT COMPREHENSIVE METABOLIC STAT 07/30/2017 PANEL 9:02 PM CDT HI CRITICAL CARE, E/M Routine 07/30/2017 30-74 MINUTES 8:52 PM CDT ECG 12-LEAD STAT 07/30/2017 8:34 PM CDT POC GLUCOSE Routine 07/08/2017 11:02 AM CDT POC GLUCOSE Routine 07/08/2017 7:14 AM CDT POC GLUCOSE Routine 07/08/2017 5:39 AM CDT ZZESTIMATED GFR Routine 07/08/2017 5:30 AM CDT BASIC METABOLIC PANEL Routine 07/08/2017 5:30 AM CDT POC GLUCOSE Routine 07/08/2017 4:18 AM CDT POC GLUCOSE Routine 07/08/2017 3:50 AM CDT POC GLUCOSE Routine 07/07/2017 8:43 PM CDT POC GLUCOSE Routine 07/07/2017 4:17 PM CDT POC GLUCOSE Routine 07/07/2017 10:59 AM CDT POC GLUCOSE Routine 07/07/2017 5:34 AM CDT POC GLUCOSE Routine 07/06/2017 8:37 PM CDT POC GLUCOSE Routine 07/06/2017 4:34 PM CDT POC GLUCOSE Routine 07/06/2017 11:10 AM CDT ZZESTIMATED GFR Routine 07/06/2017 10:56 AM CDT MAGNESIUM LEVEL Routine 07/06/2017 10:56 AM CDT PHOSPHORUS LEVEL Routine 07/06/2017 10:56 AM CDT COMPREHENSIVE METABOLIC Routine 07/06/2017 PANEL 10:56 AM CDT POC GLUCOSE Routine 07/06/2017 6:08 AM CDT POC GLUCOSE Routine 07/05/2017 5:07 PM CDT POC GLUCOSE Routine 07/05/2017 4:37 PM CDT TROPONIN Timed 07/05/2017 4:30 AM CDT XR CHEST 1 VW PORTABLE STAT 07/04/2017 7:15 PM CDT HI CRITICAL CARE, E/M Routine 07/04/2017 30-74 MINUTES 6:35 PM CDT ZZESTIMATED GFR STAT 07/04/2017 6:35 PM CDT B NATRIURETIC PEPTIDE STAT 07/04/2017 6:35 PM CDT TROPONIN STAT 07/04/2017 6:35 PM CDT CREATINE KINASE, TOTAL STAT 07/04/2017 (CPK) 6:35 PM CDT COMPREHENSIVE METABOLIC STAT 07/04/2017 PANEL 6:35 PM CDT HC COMPLETE BLD COUNT STAT 07/04/2017 W/AUTO DIFF 6:35 PM CDT ECG 12-LEAD STAT 07/04/2017 6:16 PM CDT POC GLUCOSE Routine 06/27/2017 11:20 AM CDT POC GLUCOSE Routine 06/27/2017 5:19 AM CDT POC GLUCOSE Routine 06/26/2017 10:42 PM CDT POC GLUCOSE Routine 06/26/2017 8:43 PM CDT POC GLUCOSE Routine 06/26/2017 3:57 PM CDT POC GLUCOSE Routine 06/26/2017 12:39 PM CDT HC COMPLETE BLD COUNT STAT 06/26/2017 W/AUTO DIFF 11:55 AM CDT ZZESTIMATED GFR Routine 06/26/2017 5:45 AM CDT HC COMPLETE BLD COUNT Routine 06/26/2017 W/AUTO DIFF 5:45 AM CDT BASIC METABOLIC PANEL Routine 06/26/2017 5:45 AM CDT POC GLUCOSE Routine 06/26/2017 5:34 AM CDT POC GLUCOSE Routine 06/25/2017 10:33 PM CDT POC GLUCOSE Routine 06/25/2017 8:00 PM CDT POC GLUCOSE Routine 06/25/2017 4:53 PM CDT POC GLUCOSE Routine 06/25/2017 11:02 AM CDT TROPONIN Timed 06/25/2017 9:54 AM CDT B NATRIURETIC PEPTIDE STAT 06/25/2017 9:54 AM CDT XR CHEST 1 VW PORTABLE STAT 06/25/2017 6:32 AM CDT ZZESTIMATED GFR STAT 06/25/2017 6:21 AM CDT TROPONIN STAT 06/25/2017 6:21 AM CDT CREATINE KINASE, TOTAL STAT 06/25/2017 (CPK) 6:21 AM CDT BASIC METABOLIC PANEL STAT 06/25/2017 6:21 AM CDT HC COMPLETE BLD COUNT STAT 06/25/2017 W/AUTO DIFF 6:21 AM CDT ECG ED PRELIMINARY Routine 06/25/2017 INTERPRETATION 6:05 AM CDT HI CRITICAL CARE, E/M Routine 06/25/2017 30-74 MINUTES 6:05 AM CDT ECG 12-LEAD STAT 06/25/2017 5:57 AM CDT ECG 12-LEAD STAT 06/25/2017 5:56 AM CDT POC GLUCOSE Routine 05/15/2017 12:34 PM CDT POC GLUCOSE Routine 05/15/2017 11:43 AM CDT POC GLUCOSE Routine 05/15/2017 5:49 AM CDT ZZESTIMATED GFR STAT 05/15/2017 5:05 AM CDT BASIC METABOLIC PANEL STAT 05/15/2017 5:05 AM CDT B NATRIURETIC PEPTIDE Routine 05/15/2017 5:05 AM CDT POC GLUCOSE Routine 05/14/2017 8:49 PM CDT POC GLUCOSE Routine 05/14/2017 6:[address] CHEST WO CONTRAST Routine 05/14/2017 5:59 PM CDT POC GLUCOSE Routine 05/14/2017 4:38 PM CDT PROCALCITONIN Routine 05/14/2017 2:14 PM CDT POC GLUCOSE Routine 05/14/2017 12:06 PM CDT POC GLUCOSE Routine 05/14/2017 7:19 AM CDT TROPONIN Timed 05/13/2017 9:40 PM CDT B NATRIURETIC PEPTIDE Timed 05/13/2017 6:07 PM CDT ZZESTIMATED GFR Routine 05/13/2017 6:01 PM CDT TROPONIN Routine 05/13/2017 6:01 PM CDT CREATINE KINASE, TOTAL Routine 05/13/2017 (CPK) 6:01 PM CDT COMPREHENSIVE METABOLIC Routine 05/13/2017 PANEL 6:01 PM CDT XR CHEST 1 VW PORTABLE STAT 05/13/2017 5:29 PM CDT ECG 12-LEAD STAT 05/13/2017 5:08 PM CDT ECG ED PRELIMINARY Routine 05/13/2017 INTERPRETATION 4:59 PM CDT SMEAR REVIEW STAT 05/13/2017 3:17 PM CDT HC COMPLETE BLD COUNT STAT 05/13/2017 W/AUTO DIFF 3:17 PM CDT POC GLUCOSE Routine 03/08/2017 10:40 AM PROTECTIVE SIGNAL SUPERINTENDENT ZZESTIMATED GFR Routine 03/08/2017 9:47 AM PROTECTIVE SIGNAL SUPERINTENDENT HC COMPLETE BLD COUNT STAT 03/08/2017 W/AUTO DIFF 9:47 AM PROTECTIVE SIGNAL SUPERINTENDENT BASIC METABOLIC PANEL Routine 03/08/2017 9:47 AM PROTECTIVE SIGNAL SUPERINTENDENT POC GLUCOSE Routine 03/08/2017 6:20 AM PROTECTIVE SIGNAL SUPERINTENDENT POC GLUCOSE Routine 03/08/2017 6:03 AM PROTECTIVE SIGNAL SUPERINTENDENT POC GLUCOSE Routine 03/08/2017 5:38 AM PROTECTIVE SIGNAL SUPERINTENDENT POC GLUCOSE Routine 03/08/2017 5:37 AM PROTECTIVE SIGNAL SUPERINTENDENT POC GLUCOSE Routine 03/08/2017 5:36 AM PROTECTIVE SIGNAL SUPERINTENDENT TRANSFUSE RED BLOOD CELLS Routine 03/08/2017 2:06 AM PROTECTIVE SIGNAL SUPERINTENDENT POC GLUCOSE Routine 03/07/2017 8:05 PM PROTECTIVE SIGNAL SUPERINTENDENT TRANSFUSE RED BLOOD CELLS Routine 03/07/2017 7:35 PM PROTECTIVE SIGNAL SUPERINTENDENT POC GLUCOSE Routine 03/07/2017 4:20 PM PROTECTIVE SIGNAL SUPERINTENDENT PREPARE RBC Timed 03/07/2017 1:02 PM PROTECTIVE SIGNAL SUPERINTENDENT TYPE AND SCREEN Routine 03/07/2017 1:02 PM PROTECTIVE SIGNAL SUPERINTENDENT POC GLUCOSE Routine 03/07/2017 11:20 AM PROTECTIVE SIGNAL SUPERINTENDENT POC GLUCOSE Routine 03/07/2017 5:37 AM PROTECTIVE SIGNAL SUPERINTENDENT ZZESTIMATED GFR Routine 03/07/2017 4:51 AM PROTECTIVE SIGNAL SUPERINTENDENT HC COMPLETE BLD COUNT Routine 03/07/2017 W/AUTO DIFF 4:51 AM PROTECTIVE SIGNAL SUPERINTENDENT BASIC METABOLIC PANEL Routine 03/07/2017 4:51 AM PROTECTIVE SIGNAL SUPERINTENDENT POC GLUCOSE Routine 03/06/2017 7:53 PM PROTECTIVE SIGNAL SUPERINTENDENT POC GLUCOSE Routine 03/06/2017 4:12 PM PROTECTIVE SIGNAL SUPERINTENDENT POC GLUCOSE Routine 03/06/2017 10:58 AM PROTECTIVE SIGNAL SUPERINTENDENT XR CHEST 2 VW Routine 03/06/2017 10:00 AM PROTECTIVE SIGNAL SUPERINTENDENT ZZESTIMATED GFR Routine 03/06/2017 9:24 AM PROTECTIVE SIGNAL SUPERINTENDENT BASIC METABOLIC PANEL Routine 03/06/2017 9:24 AM PROTECTIVE SIGNAL SUPERINTENDENT POC GLUCOSE Routine 03/06/2017 5:59 AM PROTECTIVE SIGNAL SUPERINTENDENT POC GLUCOSE Routine 03/06/2017 4:19 AM PROTECTIVE SIGNAL SUPERINTENDENT POC GLUCOSE Routine 03/06/2017 3:42 AM PROTECTIVE SIGNAL SUPERINTENDENT POC GLUCOSE Routine 03/05/2017 8:10 PM PROTECTIVE SIGNAL SUPERINTENDENT POC GLUCOSE Routine 03/05/2017 4:25 PM PROTECTIVE SIGNAL SUPERINTENDENT POC GLUCOSE Routine 03/05/2017 11:41 AM PROTECTIVE SIGNAL SUPERINTENDENT ECHOCARDIOGRAM 2D Routine 03/05/2017 COMPLETE W MMODE SPECTRAL 11:35 AM PROTECTIVE SIGNAL SUPERINTENDENT COLOR DOPPLER ([id number]) POC GLUCOSE Routine 03/05/2017 5:35 AM PROTECTIVE SIGNAL SUPERINTENDENT ZZESTIMATED GFR Routine 03/05/2017 5:35 AM PROTECTIVE SIGNAL SUPERINTENDENT BASIC METABOLIC PANEL Routine 03/05/2017 5:35 AM PROTECTIVE SIGNAL SUPERINTENDENT HC COMPLETE BLD COUNT Routine 03/05/2017 W/AUTO DIFF 5:35 AM PROTECTIVE SIGNAL SUPERINTENDENT POC GLUCOSE Routine 03/05/2017 2:50 AM PROTECTIVE SIGNAL SUPERINTENDENT TROPONIN Timed 03/04/2017 8:45 PM PROTECTIVE SIGNAL SUPERINTENDENT ECG ED PRELIMINARY Routine 03/04/2017 INTERPRETATION 8:39 PM PROTECTIVE SIGNAL SUPERINTENDENT POC GLUCOSE Routine 03/04/2017 8:29 PM PROTECTIVE SIGNAL SUPERINTENDENT POC GLUCOSE Routine 03/04/2017 5:35 PM PROTECTIVE SIGNAL SUPERINTENDENT TROPONIN Timed 03/04/2017 2:15 PM PROTECTIVE SIGNAL SUPERINTENDENT XR CHEST 1 VW PORTABLE STAT 03/04/2017 10:18 AM PROTECTIVE SIGNAL SUPERINTENDENT BLOOD CULTURE, AEROBIC & Routine 03/04/2017 ANAEROBIC 9:40 AM PROTECTIVE SIGNAL SUPERINTENDENT ZZESTIMATED GFR STAT 03/04/2017 9:20 AM PROTECTIVE SIGNAL SUPERINTENDENT B NATRIURETIC PEPTIDE STAT 03/04/2017 9:20 AM PROTECTIVE SIGNAL SUPERINTENDENT TROPONIN STAT 03/04/2017 9:20 AM PROTECTIVE SIGNAL SUPERINTENDENT COMPREHENSIVE METABOLIC STAT 03/04/2017 PANEL 9:20 AM PROTECTIVE SIGNAL SUPERINTENDENT HC COMPLETE BLD COUNT STAT 03/04/2017 W/AUTO DIFF 9:20 AM PROTECTIVE SIGNAL SUPERINTENDENT BLOOD CULTURE, AEROBIC & Routine 03/04/2017 ANAEROBIC 9:20 AM PROTECTIVE SIGNAL SUPERINTENDENT INFLUENZA ANTIGEN Routine 03/04/2017 9:20 AM PROTECTIVE SIGNAL SUPERINTENDENT ECG 12-LEAD STAT 03/04/2017 9:17 AM PROTECTIVE SIGNAL SUPERINTENDENT POC GLUCOSE Routine 02/12/2017 5:55 AM PROTECTIVE SIGNAL SUPERINTENDENT SMEAR REVIEW Routine 02/12/2017 5:20 AM PROTECTIVE SIGNAL SUPERINTENDENT ZZESTIMATED GFR Routine 02/12/2017 5:20 AM PROTECTIVE SIGNAL SUPERINTENDENT HC COMPLETE BLD COUNT Routine 02/12/2017 W/AUTO DIFF 5:20 AM PROTECTIVE SIGNAL SUPERINTENDENT BASIC METABOLIC PANEL Routine 02/12/2017 5:20 AM PROTECTIVE SIGNAL SUPERINTENDENT SMEAR REVIEW Timed 02/12/2017 12:50 AM PROTECTIVE SIGNAL SUPERINTENDENT HEMOGLOBIN & HEMATOCRIT Timed 02/12/2017 12:50 AM PROTECTIVE SIGNAL SUPERINTENDENT POC GLUCOSE Routine 02/11/2017 8:38 PM PROTECTIVE SIGNAL SUPERINTENDENT HEMOGLOBIN & HEMATOCRIT Timed 02/11/2017 5:56 PM PROTECTIVE SIGNAL SUPERINTENDENT POC GLUCOSE Routine 02/11/2017 5:20 PM PROTECTIVE SIGNAL SUPERINTENDENT URINALYSIS SCREEN AND Routine 02/11/2017 MICROSCOPY, WITH REFLEX 3:30 PM PROTECTIVE SIGNAL SUPERINTENDENT TO CULTURE CT ABDOMEN PELVIS W Routine 02/11/2017 CONTRAST 3:00 PM PROTECTIVE SIGNAL SUPERINTENDENT HI DRAIN SKIN ABSCESS Routine 02/11/2017 SIMPLE 1:18 PM PROTECTIVE SIGNAL SUPERINTENDENT HEMOGLOBIN & HEMATOCRIT Timed 02/11/2017 12:33 PM PROTECTIVE SIGNAL SUPERINTENDENT POC GLUCOSE Routine 02/11/2017 11:23 AM PROTECTIVE SIGNAL SUPERINTENDENT HEMOGLOBIN & HEMATOCRIT Routine 02/11/2017 8:15 AM PROTECTIVE SIGNAL SUPERINTENDENT POC GLUCOSE Routine 02/11/2017 5:58 AM PROTECTIVE SIGNAL SUPERINTENDENT ZZESTIMATED GFR Timed 02/11/2017 4:30 AM PROTECTIVE SIGNAL SUPERINTENDENT BASIC METABOLIC PANEL Timed 02/11/2017 4:30 AM PROTECTIVE SIGNAL SUPERINTENDENT HC COMPLETE BLD COUNT Timed 02/11/2017 W/AUTO DIFF 4:30 AM PROTECTIVE SIGNAL SUPERINTENDENT TROPONIN Timed 02/11/2017 4:30 AM PROTECTIVE SIGNAL SUPERINTENDENT TROPONIN Timed 02/11/2017 12:55 AM PROTECTIVE SIGNAL SUPERINTENDENT POC GLUCOSE Routine 02/10/2017 9:06 PM PROTECTIVE SIGNAL SUPERINTENDENT TROPONIN Timed 02/10/2017 9:05 PM PROTECTIVE SIGNAL SUPERINTENDENT URINALYSIS SCREEN AND STAT 02/10/2017 MICROSCOPY, WITH REFLEX 7:35 PM PROTECTIVE SIGNAL SUPERINTENDENT TO CULTURE GRAM STAIN STAT 02/10/2017 7:35 PM PROTECTIVE SIGNAL SUPERINTENDENT URINE CULTURE STAT 02/10/2017 7:35 PM PROTECTIVE SIGNAL SUPERINTENDENT POC GLUCOSE Routine 02/10/2017 6:39 PM PROTECTIVE SIGNAL SUPERINTENDENT GRAM STAIN Routine 02/10/2017 5:53 PM PROTECTIVE SIGNAL SUPERINTENDENT AEROBIC CULTURE Routine 02/10/2017 5:53 PM PROTECTIVE SIGNAL SUPERINTENDENT ANAEROBIC CULTURE Routine 02/10/2017 5:53 PM PROTECTIVE SIGNAL SUPERINTENDENT XR CHEST 1 VW PORTABLE STAT 02/10/2017 4:32 PM PROTECTIVE SIGNAL SUPERINTENDENT ZZESTIMATED GFR STAT 02/10/2017 4:00 PM PROTECTIVE SIGNAL SUPERINTENDENT B NATRIURETIC PEPTIDE STAT 02/10/2017 4:00 PM PROTECTIVE SIGNAL SUPERINTENDENT TROPONIN STAT 02/10/2017 4:00 PM PROTECTIVE SIGNAL SUPERINTENDENT COMPREHENSIVE METABOLIC STAT 02/10/2017 PANEL 4:00 PM PROTECTIVE SIGNAL SUPERINTENDENT PARTIAL THROMBOPLASTIN STAT 02/10/2017 TIME (PTT) 4:00 PM PROTECTIVE SIGNAL SUPERINTENDENT PROTHROMBIN TIME WITH INR STAT 02/10/2017 4:00 PM PROTECTIVE SIGNAL SUPERINTENDENT HC COMPLETE BLD COUNT STAT 02/10/2017 W/AUTO DIFF 4:00 PM PROTECTIVE SIGNAL SUPERINTENDENT TYPE AND SCREEN Routine 02/10/2017 4:00 PM PROTECTIVE SIGNAL SUPERINTENDENT ECG 12-LEAD STAT 02/10/2017 3:43 PM PROTECTIVE SIGNAL SUPERINTENDENT BEDSIDE GLUCOSE STAT 02/04/2017 10:19 PM PROTECTIVE SIGNAL SUPERINTENDENT POC GLUCOSE Routine 02/04/2017 10:12 PM PROTECTIVE SIGNAL SUPERINTENDENT BEDSIDE GLUCOSE Routine 02/04/2017 9:18 PM PROTECTIVE SIGNAL SUPERINTENDENT POC GLUCOSE Routine 02/04/2017 8:54 PM PROTECTIVE SIGNAL SUPERINTENDENT ZZESTIMATED GFR STAT 02/04/2017 8:05 PM PROTECTIVE SIGNAL SUPERINTENDENT BASIC METABOLIC PANEL STAT 02/04/2017 8:05 PM PROTECTIVE SIGNAL SUPERINTENDENT HC COMPLETE BLD COUNT STAT 02/04/2017 W/AUTO DIFF 8:05 PM PROTECTIVE SIGNAL SUPERINTENDENT after 01/30/2017 Results * POC glucose (01/18/2018 11:07 AM PROTECTIVE SIGNAL SUPERINTENDENT) Only the most recent of 185 results within the time period is included. POC glucose 115 (H) 65 - 99 mg/dL [facility] Comment: [facility] Meter ID: [id number] Store Keeper: Bhupinder Brown Performing Organization Address [facility] Phone Number [address] [place] [address] PATHOLOGY AND GENOMIC MEDICINE [address] * Estimated GFR (01/18/2018 5:20 AM PROTECTIVE SIGNAL SUPERINTENDENT) Only the most recent of 20 results within the time period is included. Estimated GFR 77 mL/min/1.73 m2 [facility] Comment: [facility] CatergoryUnitsInte rpretation G1 >=90 Normal or high G2 60-89Mildly decreased [id number] Mildly to moderately decreased [id number] Moderately to severely decreased G4 15-29Severely decreased G5 <15Kidney failure The eGFR was calculated using the Chronic Kidney Disease Epidemiology Collaboration (CKD-EPI) equation. Interpretation is based on recommendations of the National Kidney Foundation-Kidney Disease Outcomes Quality Initiative (NKF-KDOQI) published in 2014. Specimen Plasma specimen Performing Organization Address [facility] Hospitalcode Phone Number [address] [place] [address] PATHOLOGY AND GENOMIC MEDICINE [address] * Comprehensive metabolic panel (01/18/2018 5:20 AM PROTECTIVE SIGNAL SUPERINTENDENT) Only the most recent of 18 results within the time period is included. Sodium 141 135 - 148 mEq/L [facility] Potassium 3.1 (L) 3.5 - 5.0 mEq/L [facility] Chloride 101 98 - 112 mEq/L [facility] CO2 31 24 - 31 mEq/L [facility] Anion gap 9@ANIO 7 - 15 mEq/L [facility] BUN 21 8 - 23 mg/dL [facility] Creatinine 0.80 0.50 - 0.90 mg/dL [facility] Glucose 55 (L) 65 - 99 mg/dL [facility] Calcium 9.0 8.8 - 10.2 mg/dL [facility] Protein 6.9 6.3 - 8.3 g/dL [facility] Comment: [facility] 4.6-7.0 g/dL 1 week 4.4-7.6 g/dL 7 months-1year 5.1-7.3 g/dL 1-2 years5.6-7 .5 g/dL >3 years6.0-8 .0 g/dL 18-150 6.3-8.3 g/dL Albumin 3.6 3.5 - 5.0 g/dL [facility] A/G ratio 1.1 0.7 - 3.8 [facility] Alkaline phosphatase 61 35 - 104 U/L [facility] AST 11 10 - 35 U/L [facility] ALT 7 5 - 50 U/L [facility] Total bilirubin 1.1 0.0 - 1.2 mg/dL [facility] Specimen Plasma specimen Performing Organization Address [facility] Phone Number [address] [place] [address] PATHOLOGY AND [facility] MEDIC[facility] [address] * Uric acid level (01/16/2018 6:15 AM PROTECTIVE SIGNAL SUPERINTENDENT) Uric acid 9.9 (H) 2.4 - 5.7 mg/dL [facility] Specimen Plasma specimen Performing Organization Address [facility] Phone Number [address] [place] [address] PATHOLOGY AND [address] * Phosphorus level (01/16/2018 6:15 AM PROTECTIVE SIGNAL SUPERINTENDENT) Only the most recent of 5 results within the time period is included. Phosphorus 3.6 2.4 - 4.5 mg/dL [facility] Specimen Plasma specimen Performing Organization Address [facility] Phone Number [address] [place] [address] PATHOLOGY AND GENOMIC MEDICINE [address] * Magnesium level (01/16/2018 6:15 AM PROTECTIVE SIGNAL SUPERINTENDENT) Only the most recent of 6 results within the time period is included. Magnesium 2.0 1.6 - 2.4 mg/dL [facility] Specimen Plasma specimen Performing Organization Address [facility] Phone Number [address] [place] [address] PATHOLOGY AND [facility] MEDIC[facility] [address] * Troponin (01/15/2018 12:51 PM PROTECTIVE SIGNAL SUPERINTENDENT) Only the most recent of 30 results within the time period is included. Troponin <0.300 0.000 - 0.300 ng/mL [facility] Comment: [facility] 0.30 - 1.49 ng/mlMay indicate increased risk of acute coronary syndrome. >=1.5 ng/ml Consistent with acute myocardial infarction. The diagnostic value of a single normal or non-diagnostic result is questionable.Serial samples at 2-6 hour intervals are required to rule out acute myocardial injury. Specimen Plasma specimen Performing Organization Address [facility] Phone Number [address] [place] [address] PATHOLOGY AND [address] * Prothrombin time with INR (01/15/2018 6:40 AM PROTECTIVE SIGNAL SUPERINTENDENT) Only the most recent of 6 results within the time period is included. Prothrombin time 17.6 (H) 11.5 - 14.5 sec [facility] INR 1.5 [facility] Comment: [facility] The International Normalized Ratio (INR) is a therapeutic monitoring tool for patients who are stable on oral anticoagulant therapy. An INR of 2.0-3.0 is suggested for deep vein thrombosis/pulmonary embolism. Specimen Blood Performing Organization Address [facility] Phone Number [address] [place] [address] PATHOLOGY AND [address] * XR Chest 1 Vw Portable (01/15/2018 6:32 AM PROTECTIVE SIGNAL SUPERINTENDENT) Only the most recent of 14 results within the time period is included. Narrative Performed At EXAMINATION:XR CHEST 1 VW PORTABLE [facility] CLINICAL HISTORY:Shortness of breath COMPARISON:01/08/2019 IMPRESSION: Heart and mediastinum are stable. Pulmonary vascular congestion, mildly decreased since prior study. No new consolidations. [facility]-[id number] Procedure Note Hm Interface, Radiology Results Incoming - 01/15/2018 6:37 AM PROTECTIVE SIGNAL SUPERINTENDENT EXAMINATION: XR CHEST 1 VW PORTABLE CLINICAL HISTORY: Shortness of breath COMPARISON: 01/08/2019 IMPRESSION: Heart and mediastinum are stable. Pulmonary vascular congestion, mildly decreased since prior study. No new consolidations. [facility]-[id number] Performing Organization Address City/[facility] Phone Number [facility] [address] [place] [address] * Smear review (01/15/2018 6:11 AM PROTECTIVE SIGNAL SUPERINTENDENT) Only the most recent of 16 results within the time period is included. Platelet slide review Isaías adequate [facility] Anisocytosis Slight [facility] Ovalocytes Occasional [facility] Anisochromia Slight [facility] Performing Organization Address [facility] Phone Number [facility] [place] [id number] [place] [address] [place] [id number] PATHOLOGY AND GENOMIC MEDICINE [facility] [id number] [place] [address] [place] [id number] [facility] * CBC with platelet and differential (01/15/2018 6:11 AM PROTECTIVE SIGNAL SUPERINTENDENT) Only the most recent of 34 results within the time period is included. WBC 6.93 4.50 - 11.00 k/uL [facility] RBC 3.97 (L) 4.20 - 5.50 m/uL [facility] HGB 9.3 (L) 12.0 - 16.0 g/dL [facility] HCT 30.6 (L) 37.0 - 47.0 % [facility] MCV 77.1 (L) 82.0 - 100.0 fL [facility] MCH 23.4 (L) 27.0 - 34.0 pg [facility] MCHC 30.4 (L) 31.0 - 37.0 g/dL [facility] RDW - SD 53.1 37.0 - 55.0 fL [facility] MPV ---- 8.8 - 13.2 fL [facility] Platelet count 197 150 - 400 k/uL [facility] Nucleated RBC 0.00 /100 WBC [facility] Neutrophils 73.1 (H) 39.0 - 69.0 % [facility] Lymphocytes 12.6 (L) 25.0 - 45.0 % [facility] Monocytes 11.4 (H) 0.0 - 10.0 % [facility] Eosinophils 2.0 0.0 - 5.0 % [facility] Basophils 0.3 0.0 - 1.0 % [facility] Specimen Blood Performing Organization Address [facility] [place] [place] [address] PATHOLOGY AND GENOMIC MEDICINE [address] * B natriuretic peptide (01/15/2018 6:11 AM PROTECTIVE SIGNAL SUPERINTENDENT) Only the most recent of 15 results within the time period is included. BNP 387 (H) 0 - 100 pg/mL [facility] Specimen Blood Performing Organization Address [facility] [place] [address] PATHOLOGY AND GENOMIC MEDICINE [address] * ECG ED Preliminary Interpretation - Not an Order (01/15/2018 6:00 AM PROTECTIVE SIGNAL SUPERINTENDENT) Only the most recent of 9 results within the time period is included. Narrative Performed At Eve Miles MD 01/17/20185:39 PM ECG ED Preliminary Interpretation - Not an Order Performed by: Eve Miles MD Authorized by: Eve Miles MD ECG reviewed by ED Physician in the absence of a medical data entry clerk: yes Interpretation: Interpretation: normal Rate: ECG rate:76 ECG rate assessment: normal Rhythm: Rhythm: atrial fibrillation Ectopy: Ectopy: none QRS: QRS axis:Left Conduction: Conduction: normal ST segments: ST segments:Non-specific T waves: T waves: normal * ECG 12 lead (01/15/2018 5:38 AM PROTECTIVE SIGNAL SUPERINTENDENT) Only the most recent of 15 results within the time period is included. Ventricular rate 76 HM MUSE Atrial rate 72 HM MUSE QRSD interval 92 H MUSE QT interval 430 [facility] MUSE QTC interval 483 HM [facility]USE QRS axis 1 -87 [facility] T wave axis 109 [facility] MUSE EKG impression Atrial fibrillation with [facility] MUSE premature ventricular or aberrantly conducted complexes-Left axis deviation-Possible Anterolateral infarct , age undetermined-Abnormal ECG-In automated comparison with ECG of 06-JAN-2018 19:11,-Nonspecific T wave abnormality has replaced inverted T waves in Lateral leads- Narrative Performed At Performing Organization Address City/[facility]/Zipcode Phone Number [facility] MUSE [address] [place] [address] * Basic metabolic panel (01/11/2018 8:16 AM PROTECTIVE SIGNAL SUPERINTENDENT) Only the most recent of 24 results within the time period is included. Sodium 133 (L) 135 - 148 mEq/L [facility] Potassium 4.0 3.5 - 5.0 mEq/L [facility] Chloride 95 (L) 98 - 112 mEq/L [facility] CO2 26 24 - 31 mEq/L [facility] Anion gap 12@ANIO 7 - 15 mEq/L [facility] BUN 32 (H) 8 - 23 mg/dL [facility] Creatinine 1.00 (H) 0.50 - 0.90 mg/dL [facility] Glucose 116 (H) 65 - 99 mg/dL [facility] Calcium 9.4 8.8 - 10.2 mg/dL [facility] Specimen Plasma specimen Performing Organization Address City/[facility]/Zipcode [place] Number [place] [address] [place] [address] PATHOLOGY AND GENOMIC MEDICINE [facility] [id number] [place] [address] [place] [address] [facility] * CT Chest Wo Contrast (01/09/2018 9:26 AM PROTECTIVE SIGNAL SUPERINTENDENT) Only the most recent of 2 results within the time period is included. Narrative Performed At EXAMINATION: HM [facility] CT CHEST WO CONTRAST CLINICAL HISTORY: Shortness of breath TECHNIQUE:Multiple axial images of the chest were obtained without intravenous contrast. The lack of intravenous contrast reduces the sensitivity of detecting solid organ disease and evaluating vasculature. CT images were obtained using low-dose technique with automated exposure control. Sagittal and coronal computerized reformatted images were also obtained. COMPARISON: CT from 05/14/2017 IMPRESSION: 1.There are number of abnormally enlarged mediastinal nodes. Lymph nodes in the prevascular space measure up to 1.3 cm in short axis, previously measuring 1 cm. There is a right paratracheal node measuring 1.3 x 2.2 cm, unchanged. A precarinal node measuring 2.1 x 2.6 cm previously measured 1.6 x 2.5 cm. There is 2.2 x 2.9 cm lymph node posterior to the right lower lobe bronchus previously measuring 1.6 x 2.5 cm. Small axillary nodes present. 2.There is a trace right pleural effusion. 3.Heart is moderately enlarged. There is small pericardial effusion. 4.Main pulmonary artery is dilated measuring 3.5 cm. There is central vascular congestion with mild edema. 5.Thoracic aorta is normal in caliber. Ascending aorta measures 3.1 cm. 6.There is moderate coronary calcification. 7.Limited images of the upper abdomen demonstrate prior cholecystectomy, small hiatal hernia and a 2.7 x 3.3 cm left adrenal mass measuring 47 Hounsfield units. This left adrenal mass measured 2.1 x 2.8 cm on 08/06/2016 and 2 x 2.7 cm on 10/01/2015. Summary: Nonspecific mediastinal adenopathy which is slightly increased. Cardiomegaly with mild congestive failure and pulmonary arterial hypertension Indeterminate 2.7 x 3.3 cm left adrenal mass as noted above. [facility]-[id number] Procedure Note Hm Interface, Radiology Results Incoming - 01/09/2018 10:05 AM PROTECTIVE SIGNAL SUPERINTENDENT EXAMINATION: CT CHEST WO CONTRAST CLINICAL HISTORY: Shortness of breath TECHNIQUE: Multiple axial images of the chest were obtained without intravenous contrast. The lack of intravenous contrast reduces the sensitivity of detecting solid organ disease and evaluating vasculature. CT images were obtained using low-dose technique with automated exposure control. Sagittal and coronal computerized reformatted images were also obtained. COMPARISON: CT from 05/14/2017 IMPRESSION: 1. There are number of abnormally enlarged mediastinal nodes. Lymph nodes in the prevascular space measure up to 1.3 cm in short axis, previously measuring 1 cm. There is a right paratracheal node measuring 1.3 x 2.2 cm, unchanged. A precarinal node measuring 2.1 x 2.6 cm previously measured 1.6 x 2.5 cm. There is 2.2 x 2.9 cm lymph node posterior to the right lower lobe bronchus previously measuring 1.6 x 2.5 cm. Small axillary nodes present. 2. There is a trace right pleural effusion. 3. Heart is moderately enlarged. There is small pericardial effusion. 4. Main pulmonary artery is dilated measuring 3.5 cm. There is central vascular congestion with mild edema. 5. Thoracic aorta is normal in caliber. Ascending aorta measures 3.1 cm. 6. There is moderate coronary calcification. 7. Limited images of the upper abdomen demonstrate prior cholecystectomy, small hiatal hernia and a 2.7 x 3.3 cm left adrenal mass measuring 47 Hounsfield units. This left adrenal mass measured 2.1 x 2.8 cm on 08/06/2016 and 2 x 2.7 cm on 10/01/2015. Summary: Nonspecific mediastinal adenopathy which is slightly increased. Cardiomegaly with mild congestive failure and pulmonary arterial hypertension Indeterminate 2.7 x 3.3 cm left adrenal mass as noted above. [facility]-[id number] Performing Organization Address City/[facility]/Zipcode Phone Number [facility] [address] [place] [address] * Lactic acid level (01/07/2018 4:45 AM PROTECTIVE SIGNAL SUPERINTENDENT) Only the most recent of 2 results within the time period is included. Lactic acid 0.7 0.5 - 2.2 mmol/L [facility] Specimen Plasma specimen Performing Organization Address City/[facility]/Zipcode Phone Number [facility] [id number] [place] [address] [place] [address] PATHOLOGY AND GENOMIC MEDICINE [address] * Blood culture, aerobic & anaerobic (01/06/2018 5:25 PM PROTECTIVE SIGNAL SUPERINTENDENT) Only the most recent of 6 results within the time period is included. Blood culture isolate No growth after 5 days of [facility] incubation. HOSPITAL Comment: Specimen Information Specimen Source: Blood Specimen Site: Arm Right Specimen Blood Performing Organization Address City/[facility]/Zipcode Phone Number [facility] DEPARTMENT OF [address] [place] [address] PATHOLOGY AND GENOMIC MEDICINE [facility] [address] * Urinalysis screen and microscopy, with reflex to culture (01/05/2018 10:33 PM PROTECTIVE SIGNAL SUPERINTENDENT) Only the most recent of 5 results within the time period is included. Specimen site Catheterized [facility] Color, UA Yellow [facility] Appearance, UA Clear [facility] Specific gravity, UA 1.008 1.001 - 1.035 [facility] pH, UA 7.0 5.0 - 8.5 [facility] Protein, UA Negative Negative [facility] Glucose, UA 3+ (A) Negative [facility] Ketones, UA Negative Negative [facility] Bilirubin, UA Negative Negative [facility] Blood, UA Negative Negative [facility] Nitrite, UA Negative Negative [facility] Urobilinogen, UA Negative <2.0 [facility] Leukocyte esterase, UA Negative Negative [facility] WBC, UA 0-5 0 - 4 /HPF [facility] RBC, UA 0-5 0 - 5 /HPF [facility] Bacteria, UA Trace None seen [facility] Yeast, UA None seen [facility] Yeast with pseudohyphae, None seen [facility] Specimen Urine Performing Organization Address City/[facility] [place] [address] [address] [id number] PATHOLOGY AND GENOMIC MEDICINE [facility] [address] [place] [address] [facility] * Partial thromboplastin time, activated (01/05/2018 10:15 PM PROTECTIVE SIGNAL SUPERINTENDENT) Only the most recent of 5 results within the time period is included. PTT 46.4 (H) 23.0 - 36.0 sec [facility] Comment: [facility] PTT therapeutic range for unfractionated heparin is 61.0-112.0 seconds which corresponds to Anti-Xa 0.3-0.7 U/ml. Specimen Blood Performing Organization Address [facility]/Zipcode Phone Number [address] [place] [address] PATHOLOGY AND GENOMIC MEDICINE [facility] [address] [place] [address] [place] [address] [facility] * CRITICAL CARE (01/05/2018 9:50 PM PROTECTIVE SIGNAL SUPERINTENDENT) Narrative Performed At Nahid Thibodeaux MD 01/06/20188:53 PM Critical Care Performed by: Nahid Thibodeaux MD Authorized by: Nahid Thibodeaux MD Critical care provider statement: Critical care time (minutes):48 Critical care time was exclusive of:Separately billable procedures and treating other patients Critical care was necessary to treat or prevent imminent or life-threatening deterioration of the following conditions:Respiratory failure (pulmonary edema on bipap going to ICU) Critical care was time spent personally by me on the following activities:Blood draw for specimens, development of treatment plan with patient or surrogate, ordering and performing treatments and interventions, ordering and review of laboratory studies, ordering and review of radiographic studies, pulse oximetry, re-evaluation of patient's condition, review of old charts, discussions with consultants, discussions with primary provider, examination of patient, evaluation of patient's response to treatment, obtaining history from patient or surrogate and ventilator management Moisés 'yes' if you are taking over critical care for this patient from another provider.: no * Transfuse RBC (12/05/2017 2:41 PM CDT) Only the most recent of 3 results within the time period is included. * Hemoglobin & hematocrit (12/05/2017 6:15 AM CDT) Only the most recent of 10 results within the time period is included. HGB 7.8 (L) 12.0 - 16.0 g/dL [facility] DEPARTMENT OF PATHOLOGY AND GENOMIC MEDICINE HCT 26.4 (L) 37.0 - 47.0 % [facility] DEPARTMENT OF PATHOLOGY AND GENOMIC MEDICINE Specimen Blood Performing Organization Address City/[facility]/Zipcode Phone Number [address] [place] [address] PATHOLOGY AND GENOMIC MEDICINE * Surgical pathology request (12/04/2017 12:48 PM CDT) [facility] DEPARTMENT OF PATHOLOGY AND GENOMIC MEDICINE Surgical pathology report See link below for PDF Lab [facility] DEPARTMENT OF Report PATHOLOGY AND GENOMIC MEDICINE Result status This is Final Report for [facility] DEPARTMENT OF [id number] PATHOLOGY AND GENOMIC MEDICINE Performing Organization Address [facility] Phone Number [address] [place] [address] PATHOLOGY AND GENOMIC MEDICINE * Prepare RBC, 2 Units (12/03/2017 2:26 AM CDT) Only the most recent of 2 results within the time period is included. Product name Red Cells AS1 Leukored Irrad [facility] DEPARTMENT OF PATHOLOGY AND GENOMIC MEDICINE Unit number [id number] [facility] DEPARTMENT OF PATHOLOGY AND GENOMIC MEDICINE Product code [id number] [facility] DEPARTMENT OF PATHOLOGY AND GENOMIC MEDICINE Dispense status Transfused [facility] DEPARTMENT OF PATHOLOGY AND GENOMIC MEDICINE Blood expiration date [id number] [facility] DEPARTMENT OF PATHOLOGY AND GENOMIC MEDICINE Blood type code [address] [facility] DEPARTMENT OF PATHOLOGY AND GENOMIC MEDICINE Blood type O NEGATIVE [facility] DEPARTMENT OF PATHOLOGY AND GENOMIC MEDICINE Product name Red Cells AS1 Leukored Irrad [facility] DEPARTMENT OF PATHOLOGY AND GENOMIC MEDICINE Unit number [id number] [facility] DEPARTMENT OF PATHOLOGY AND GENOMIC MEDICINE Product code [id number] [facility] DEPARTMENT OF PATHOLOGY AND GENOMIC MEDICINE Dispense status Transfused [facility] DEPARTMENT OF PATHOLOGY AND GENOMIC MEDICINE Blood expiration date [id number] [facility] DEPARTMENT OF PATHOLOGY AND GENOMIC MEDICINE Blood type code [address] [facility] DEPARTMENT OF PATHOLOGY AND GENOMIC MEDICINE Blood type O NEGATIVE [facility] DEPARTMENT OF PATHOLOGY AND GENOMIC MEDICINE Performing Organization Address [facility] Phone Number [address] [place] [address] PATHOLOGY AND GENOMIC MEDICINE * Type and screen (12/03/2017 2:26 AM CDT) Only the most recent of 4 results within the time period is included. ABO grouping O [facility] DEPARTMENT OF PATHOLOGY AND GENOMIC MEDICINE Rh type POS [facility] DEPARTMENT OF PATHOLOGY AND GENOMIC MEDICINE Antibody screen NEG [facility] DEPARTMENT OF PATHOLOGY AND GENOMIC MEDICINE Specimen Blood Performing Organization Address [facility] Phone Number [address] [place] [address] PATHOLOGY AND GENOMIC MEDICINE * CT Abdomen Pelvis Wo Contrast (12/02/2017 3:05 PM CDT) Narrative Performed At EXAMINATION:CT ABDOMEN PELVIS WO CONTRAST [facility] CLINICAL HISTORY:rectal bleeding TECHNIQUE:Multiple axial images of the abdomen and pelvis were obtained without intravenous administration of iodinated contrast. Sagittal and coronal computerized reformatted images were also obtained. The lack of intravenous contrast reduces the sensitivity of detecting solid organ disease. Scan was performed using radiation dose reduction techniques. COMPARISON:February 11, 2017 FINDINGS: Marked cardiomegaly and edema is seen in the lower chest. No evidence of bowel obstruction or inflammation. Scattered diverticulosis in the colon without evidence of diverticulitis. No free fluid or free air. Solid organ assessment limited without contrast. Marked atrophy of the [place] kidneys. Status post right lower quadrant renal transplant. Marked diffuse vascular calcifications. A 3.2 cm left adrenal nodule is slightly increased in size dating back to September 2015 study. Periumbilical ventral hernias contain fat. IMPRESSION: No acute findings in the abdomen and pelvis. Cardiomegaly and mild basilar pulmonary edema. Indeterminate 3.2 cm left adrenal nodule showing indolent growth since 2015. Recommend biochemical correlation. Consider dedicated adrenal protocol CT to characterize washout. [facility]-[id number] Procedure Note Interface, Radiology Results Incoming - 12/02/2017 3:16 PM CDT EXAMINATION: CT ABDOMEN PELVIS WO CONTRAST CLINICAL HISTORY: rectal bleeding TECHNIQUE: Multiple axial images of the abdomen and pelvis were obtained without intravenous administration of iodinated contrast. Sagittal and coronal computerized reformatted images were also obtained. The lack of intravenous contrast reduces the sensitivity of detecting solid organ disease. Scan was performed using radiation dose reduction techniques. COMPARISON: February 11, 2017 FINDINGS: Marked cardiomegaly and edema is seen in the lower chest. No evidence of bowel obstruction or inflammation. Scattered diverticulosis in the colon without evidence of diverticulitis. No free fluid or free air. Solid organ assessment limited without contrast. Marked atrophy of the [place] kidneys. Status post right lower quadrant renal transplant. Marked diffuse vascular calcifications. A 3.2 cm left adrenal nodule is slightly increased in size dating back to September 2015 study. Periumbilical ventral hernias contain fat. IMPRESSION: No acute findings in the abdomen and pelvis. Cardiomegaly and mild basilar pulmonary edema. Indeterminate 3.2 cm left adrenal nodule showing indolent growth since 2015. Recommend biochemical correlation. Consider dedicated adrenal protocol CT to characterize washout. [facility]-[id number] Performing Organization Address City/State/Zipcode Phone Number [facility] [address] [place] [address] * Urine culture (12/02/2017 2:07 PM CDT) Only the most recent of 3 results within the time period is included. Urine culture SEE COMMENTComment: [facility] DEPARTMENT OF Bacteriuria screen negative. PATHOLOGY AND GENOMIC MEDICINE Specimen Urine Performing Organization Address [facility] Phone Number [facility] [id number] [place] [address] [place] [address] PATHOLOGY AND [facility] * Lipase level (12/02/2017 1:15 PM CDT) Lipase 13 13 - 60 U/L [facility] DEPARTMENT OF PATHOLOGY AND GENOMIC MEDICINE Specimen Plasma specimen Performing Organization Address [facility] Phone Number [address] [place] [address] PATHOLOGY AND [facility] * Creatine kinase, total (CPK) (12/02/2017 1:15 PM CDT) Only the most recent of 5 results within the time period is included. Creatine kinase 37 26 - 192 U/L [facility] DEPARTMENT OF PATHOLOGY AND GENOMIC MEDICINE Specimen Plasma specimen Performing Organization Address [facility] Phone Number [address] [place] [address] PATHOLOGY AND GENOMIC MEDICINE * FK506 level (11/11/2017 8:35 AM CDT) FK506 level 4.3 ng/mL [facility] DEPARTMENT OF Comment: PATHOLOGY AND Therapeutic range 5-20 ng/mL GENOMIC [facility] for 12 hour trough. The range varies depending on the organ transplanted, time after transplantation and co-administered immunosuppressant therapies. Please use clinical judgment to interpret test result. Test performed using [employer] chemiluminescent microparticle immunoassay for Tacrolimus on the [employer] i System. Specimen Blood Performing Organization Address [facility] Phone Number [facility] DEPARTMENT OF [address] [place] [address] PATHOLOGY AND GENOMIC MEDICINE * CT Lumbar Spine Wo Contrast (11/08/2017 8:19 PM CDT) Narrative Performed At EXAMINATION: CT LUMBAR SPINE WO CONTRAST RADIANT CLINICAL HISTORY: Back thal0eie conservative txpersistent sx, [id number] conservative txpersistent sx COMPARISON:None TECHNIQUE: Axial noncontrast enhanced images of lumbar spine was performed with coronal sagittal reconstruction algorithms. CT scans are performed using radiation dose reduction techniques. Technical factors are evaluated and adjusted to ensure appropriate moderation of exposure. Automated dose management technology is applied to adjust radiation exposure while achieving a diagnostic quality image. FINDINGS: There are degenerative changes of both sacroiliac joints with a large amount of vacuum density in the joint spaces and some sclerosis in the adjacent bone and tiny ventral osteophytes. There is diffuse decreased bone density. There is mild inward concavity in the endplates. I cannot exclude recent endplate fractures. If a recent endplate fracture is suspected, this would be best evaluated with an MRI exam or a triple-phase bone scan. L5-S1: There is mild posterior disc space narrowing. There is bulge and facet hypertrophic changes. 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 There is no significant central canal stenosis. There is mild foraminal stenosis. L4-5: There is mild posterior disc space narrowing. There is bulge indenting the anterior subarachnoid space. There is facet and ligamentum flavum hypertrophic changes. There is mild trefoil-shape canal stenosis and moderate foraminal stenosis. L3-4: There is bulge, facet and ligamentum flavum hypertrophic changes. There is mild central canal stenosis and mild to moderate foraminal stenosis. L2-3: There is vacuum density in the anterior inferior disc. There is greater posterior disc space narrowing. There is bulge and facet hypertrophic changes without significant canal or foraminal stenosis. L1-2: There is vacuum density in the anterior inferior disc. There is mild bulge and facet hypertrophic changes without significant canal or foraminal stenosis. There is vacuum density in the anterior T11-T12 disc. CT is limited for evaluation of cord and ligament abnormalities as well as soft tissue structures in the canal and foramen including hemorrhage and protrusion and narrowing of the subarachnoid space. There is calcification of the goldberg of many of the arteries. IMPRESSION: 1. Degenerative changes in the sacroiliac joints and lumbar spine. 2. Mild nonspecific inward concavity of the lumbar spine endplates and I cannot exclude recent endplate fractures. If recent endplate fracture is suspected, this would be best evaluated with an MRI exam. If the patient cannot undergo MRI exam, then a triple-phase bone scan can be performed. 3. 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 [id number] Procedure Note [facility], Radiology Results - 11/09/2017 8:22 AM CDT EXAMINATION: CT LUMBAR SPINE WO CONTRAST CLINICAL HISTORY: Back pain 6wks conservative tx persistent sx, Radiculopathy 6wks conservative tx persistent sx COMPARISON: None TECHNIQUE: Axial noncontrast enhanced images of lumbar spine was performed with coronal sagittal reconstruction algorithms. CT scans are performed using radiation dose reduction techniques. Technical factors are evaluated and adjusted to ensure appropriate moderation of exposure. Automated dose management technology is applied to adjust radiation exposure while achieving a diagnostic quality image. FINDINGS: There are degenerative changes of both sacroiliac joints with a large amount of vacuum density in the joint spaces and some sclerosis in the adjacent bone and tiny ventral osteophytes. There is diffuse decreased bone density. There is mild inward concavity in the endplates. I cannot exclude recent endplate fractures. If a recent endplate fracture is suspected, this would be best evaluated with an MRI exam or a triple-phase bone scan. L5-S1: There is mild posterior disc space narrowing. There is bulge and facet hypertrophic changes. 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 There is no significant central canal stenosis. There is mild foraminal stenosis. L4-5: There is mild posterior disc space narrowing. There is bulge indenting the anterior subarachnoid space. There is facet and ligamentum flavum hypertrophic changes. There is mild trefoil-shape canal stenosis and moderate foraminal stenosis. L3-4: There is bulge, facet and ligamentum flavum hypertrophic changes. There is mild central canal stenosis and mild to moderate foraminal stenosis. L2-3: There is vacuum density in the anterior inferior disc. There is greater posterior disc space narrowing. There is bulge and facet hypertrophic changes without significant canal or foraminal stenosis. L1-2: There is vacuum density in the anterior inferior disc. There is mild bulge and facet hypertrophic changes without significant canal or foraminal stenosis. There is vacuum density in the anterior T11-T12 disc. CT is limited for evaluation of cord and ligament abnormalities as well as soft tissue structures in the canal and foramen including hemorrhage and protrusion and narrowing of the subarachnoid space. There is calcification of the goldberg of many of the arteries. IMPRESSION: 1. Degenerative changes in the sacroiliac joints and lumbar spine. 2. Mild nonspecific inward concavity of the lumbar spine endplates and I cannot exclude recent endplate fractures. If recent endplate fracture is suspected, this would be best evaluated with an MRI exam. If the patient cannot undergo MRI exam, then a triple-phase bone scan can be performed. 3. 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 [id number] Performing Organization Address City/State/Zipcode Phone Number [facility] [address] [place] [address] * Echocardiogram complete w contrast and 3D if needed (11/07/2017 9:10 AM CDT) Velocity Ratio (V1/V2) 0.72 m/s [facility] IVS,d 1.06 cm [facility] EF 63.84 % [facility] LA volume 47.0 cm3 [facility] LVPWD,d 1.05 cm [facility] AoV Mean PG 4.93 mmHg [facility] AV LVOT peak gradient 4.30 mmHg [facility] MV mean gradient 3.39 mmHg [facility] MV valve area p 1/2 3.98 cm2 [facility] method E/A ratio 4.81 [facility] E wave decelartion time 188.09 msec [facility] LVOT Diam,S 1.97 cm [facility] LVOT area 3.05 cm2 [facility] LVOT Vmax 1.04 m/s [facility] LVOT VTI 0.22 m [facility] AoV Peak PG 8.43 mmHg [facility] MV Peak E Blaine 1.78 m/s [facility] MV stenosis pressure 1/2 55.23 ms [facility] time MV Peak A Blaine 0.37 m/s [facility] LV Vol,s A2C 32.56 mL [facility] LV Vol,d A2C 81.41 mL [facility] AoV Area, Vmax 2.17 cm2 [facility] AoV Area, VTI 2.08 cm2 [facility] AoV Vmax 1.45 m/s [facility] LA Area d A4C 79 cm2 [facility] LV,d 4.86 cm [facility] LV,s 3.17 cm [facility] LV Vol,d A4C 82.59 ml [facility] LV Vol,s A4C 30.44 ml [facility] TR Vpeak 3.98 mm/s [facility] MV E A ratio 4.79 mmHg [facility] RA pressure 10.00 mmHg [facility] TR pk grad 63.45 mmHg [facility] MR peak grad 13.18 mmHg [facility] RVSP 73.45 mmHg [facility] LV SYS VOL 40.04 ml [facility] LV GROVES VOL 110.74 ml [facility] LA diam s 5.40 cm [facility] LA Vol MOD A4C 78.71 ml [facility] LV SV Teich 2D 70.71 ml [facility] LVOT SI 33.77 ml/m2 [facility] MV Vmax 1.82 m [facility] MV VTI Tips 0.39 m [facility] AoV Cusp sep 1.91 [facility] Aortic Root 2.86 cm [facility] AoV Vmn 1.07 [facility] IVS s 2D 1.30 [facility] LA Ao Ratio Mmode 1.89 [facility] HI End Groves Grad 11.10 [facility] HI End Diat Blaine 1.67 [facility] D E excurs 2.10 [facility] E f slope 0.12 [facility] E prime lat 0.14 [facility] E jojo sept 0.08 [facility] PV acc T slope 8.20 [facility] PV AT 93.43 msec [facility] AoV VTI 0.32 m [facility] LV EF,A2C 60.00 % [facility] LV EF,A4C 63.14 % [facility] LV EF,BP 62.94 % [facility] Charly [place],d A2C 6.79 cm [facility] Charly [place],d A4C 7.73 cm [facility] Charly [place],s A2C 5.99 cm [facility] Charly [place],s A4C 6.34 cm [facility] LV SV,A2C 48.85 % [facility] LV SV,A4C 52.15 % [facility] LV Vol,d BP 87.30 ml [facility] LV Vol,s BP 32.35 nl [facility] LVOT Vmn 0.68 [facility] Pt Size 162.56 [facility] Pt Wt 94.35 [facility] LVOT mean grad 2.09 mmHg [facility] LVPW s PLAX 1.33 cm [facility] MV Decel slope 9.45 m/s2 [facility] Narrative Performed At [facility] The left ventricle chamber size is normal. There is borderline left ventricular concentric hypertrophy. Left Ventricular ejection fraction is 60 - 65%. There is pericardial effusion. The mitral valve appears calcified. Unable to assess diastolic filling. Performing Organization Address City/State/Zipcode Phone Number [facility] [address] [place] [address] * Estimated GFR (08/26/2017 4:34 AM CDT) Only the most recent of 22 results within the time period is included. GFR Non Af Amer 63 mL/min/1.[address] [facility] DEPARTMENT OF PATHOLOGY AND GENOMIC MEDICINE GFR Af Amer 76 mL/min/1.[address] [facility] DEPARTMENT OF Comment: PATHOLOGY AND Chronic kidney disease: <60 GENOMIC MEDICINE mL/min/1.73m2 Kidney failure: <15 mL/min/1.73m2 The estimated GFR is calculated from the IDMS-traceable Modification of Diet in Renal Disease Equation. The accuracy of the calculation is poor when the creatinine is normal. Calculated values >90 mL/min/1.73m2 are not reported. This equation has not been validated in children (<18 years), women, the elderly (>70 years), or ethnic groups other than Caucasians and Americans. Specimen Plasma specimen Performing Organization Address City/[facility]/Zipcode Phone Number [facility] [address] [place] [address] PATHOLOGY AND GENOMIC MEDICINE * Scl-70 antibody (08/25/2017 4:12 PM CDT) Scleroderma SCL-70 Ab <0.2 0.0 - 0.9 [facility] DEPARTMENT OF PATHOLOGY AND GENOMIC MEDICINE Scl-70 antibody interp Negative [facility] DEPARTMENT OF Comment: PATHOLOGY AND Anti-Scl-70 (topoisomerase I) GENOMIC MEDICINE antibodies are found in patients with systemic sclerosis (SSc or scleroderma), and have been reported to be predictive of diffuse cutaneous involvement. Anti-Scl-70 antibodies may also be present in patients with systemic lupus erythematosus (SLE). Specimen Serum Performing Organization Address City/State/Zipcode Phone Number [facility] DEPARTMENT OF [address] [place] [address] PATHOLOGY AND GENOMIC MEDICINE * Centromere antibody (08/25/2017 4:12 PM CDT) Centromere antibody <0.2 0.0 - 0.9 [facility] DEPARTMENT OF PATHOLOGY AND GENOMIC MEDICINE Centromere antibody Negative [facility] DEPARTMENT OF interp Comment: PATHOLOGY AND Anti-centromere antibodies are GENOMIC MEDICINE found in patients with systemic sclerosis (SSc or scleroderma), especially for those with limited cutaneous or CREST syndrome. Anti-centromere antibodies may also be found in patients with other rheumatic or connective tissue diseases. Specimen Serum Performing Organization Address City/[facility]/Zipcode Phone Number [facility] DEPARTMENT OF [address] [place] [id number] PATHOLOGY AND GENOMIC MEDICINE * Hypersensitivity pneumonitis II (08/25/2017 4:12 PM CDT) Aspergillus flavus None Detected None-Detected [facility] Comment: Testing includes antibodies directed at Aspergillus flavus, Aspergillus fumigatus #2, Aspergillus fumigatus #3, Saccharomonospora viridis, Thermoactinomyces candidus and Thermoactinomyces sacchari. Aspergillus fumigatus #2 None Detected None-Detected [facility] Aspergillus fumigatus #3 None Detected None-Detected [facility] Saccharomonospora viridis None Detected None-Detected [facility] Thermoactinomyces None Detected None-Detected [facility] candidus Thermoactinomyces None Detected None-Detected [facility] saccharii Comment: TEST INFORMATION: T. sacchari Ab, Precipitin Test developed and characteristics determined by [facility]. See Compliance Statement A: [facility]/ Performed by [facility], [address] [place] [address] [email or web address], Silviano Luciano MD - Lab. Director Specimen Serum Performing Organization Address [facility] Phone Number [facility] [address] [place] [address] * Hypersensitivity pneumonitis I (08/25/2017 4:12 PM CDT) Aspergillus fumigatus #1 None Detected None-Detected [facility] Aspergillus fumigatus #6 None Detected None-Detected [facility] Aureobasidium pullulans None Detected None-Detected [facility] Comment: Testing includes antibodies directed at Aureobasidium pullulans, Aspergillus fumigatus #1, Aspergillus fumigatus #6, Micropolyspora faeni, [place] Serum and Thermoactinomyces vulgaris #1. [place] serum Detected (A) None-Detected [facility] Micropolyspora faeni None Detected None-Detected [facility] Thermoactinomyces None Detected None-Detected [facility] vulgaris #1 Comment: Performed by [facility], [address] [place], [place] [id number] [email or web address], Silviano Luciano MD - Lab. Director Specimen Serum Performing Organization Address [facility] Phone Number [facility] [address] [place] [phone] * DNA Ab screen (08/25/2017 4:12 PM CDT) DNA Ab screen Not Detected Not-Detected [facility] DEPARTMENT OF PATHOLOGY AND [facility] Specimen Blood Performing Organization Address City/[facility] Phone Number [facility] [place] [address] PATHOLOGY AND [facility] * CHERRIE titer (08/25/2017 4:12 PM CDT) CHERRIE titer 1:160 (A) Not-Detected [facility] DEPARTMENT OF PATHOLOGY AND GENOMIC MEDICINE CHERRIE titer 1 1:160 (A) Not-Detected [facility] DEPARTMENT OF PATHOLOGY AND GENOMIC MEDICINE CHRERIE pattern Speckle (A) Not-Detected [facility] DEPARTMENT OF PATHOLOGY AND [facility] Specimen Blood Performing Organization Address City/[facility] Phone Number [facility] [place] [address] PATHOLOGY AND [facility] * Anti-neutrophilic cytoplasmic Abs panel (08/25/2017 4:12 PM CDT) ANCA screen Negative Negative [facility] DEPARTMENT OF PATHOLOGY AND [facility] Specimen Blood Performing Organization Address City/[facility] Phone Number [facility] [place] [address] PATHOLOGY AND [facility] * Sedimentation rate (08/25/2017 4:12 PM CDT) Sedimentation rate 25 (H) 0 - 20 mm/hr [facility] DEPARTMENT OF PATHOLOGY AND GENOMIC MEDICINE Specimen Blood Performing Organization Address City/[facility] Phone Number [facility] DEPARTMENT [address] [place] [address] PATHOLOGY AND [facility] * Rheumatoid factor (08/25/2017 4:12 PM CDT) Rheumatoid factor <10 0 - 13 IU/mL [facility] DEPARTMENT OF PATHOLOGY AND GENOMIC MEDICINE Specimen Plasma specimen Performing Organization Address City/[facility] [place] [address] PATHOLOGY AND [facility] * CRP high sensitivity (08/25/2017 4:12 PM CDT) CRP, high sensitivity 19.79 mg/L [facility] DEPARTMENT OF Comment: PATHOLOGY AND Please note this test is GENOMIC MEDICINE different from the C-Reactive Protein (CRP) assay. CRP is a nonspecific marker of inflammation and its levels rise in the presence of conditions such as infection and inflammatory disorders. Persistent low levels of CRP can be measured with a high-sensitivity assay (hsCRP) andare associated with increased risks for atherosclerotic diseases. High-Sensitivity CRP (hsCRP) results are used to assign risk for stroke, acute myocardial infarction and peripheral vascular disease as follows: Low risk: < 1.00 mg/L Average risk: 1.00 - 3.00 mg/L High risk: > 3.00 - 10.00 mg/L Indeterminate: > 10.00 mg/L * *May be indicative of another source of inflammation or infection Specimen Plasma specimen Performing Organization Address City/[facility] Phone Number [facility] [place] [address] PATHOLOGY AND [facility] * C-reactive protein (08/25/2017 4:12 PM CDT) CRP 1.84 (H) 0.00 - 0.50 mg/dL [facility] DEPARTMENT OF PATHOLOGY AND GENOMIC MEDICINE Specimen Plasma specimen Performing Organization Address [facility] [address] PATHOLOGY AND [facility] * CHERRIE (08/25/2017 4:12 PM CDT) CHERRIE screen Positive (A) Negative [facility] DEPARTMENT OF PATHOLOGY AND GENOMIC MEDICINE Specimen Blood Performing Organization Address [facility] [address] PATHOLOGY AND [facility] * Echocardiogram complete w contrast and 3D if needed (07/31/2017 5:15 PM CDT) BSA 2.01 m2 [facility] Velocity Ratio (V1/V2) 0.61 m/s [facility] IVS,d 1.23 (A) 0.6 - 1.2 cm [facility] Ao root annulus 2.69 cm [facility] EF 59.31 % [facility] LA volume 60.0 cm3 [facility] LVPWD,d 1.28 cm [facility] AoV Mean PG 4.85 mmHg [facility] AV LVOT peak gradient 4.40 mmHg [facility] MV valve area p 1/2 4.12 cm2 [facility] method E/A ratio 4.05 [facility] E wave decelartion time 195.51 msec [facility] LVOT Diam,S 1.97 cm [facility] LVOT area 3.05 cm2 [facility] LVOT Vmax 1.05 m/s [facility] LVOT VTI 0.24 m [facility] AoV Peak PG 11.92 mmHg [facility] MV Peak E Blaine 1.54 m/s [facility] MV stenosis pressure 1/2 53.38 ms [facility] time MV Peak A Blaine 0.38 m/s [facility] LV Vol,s A2C 43.89 mL [facility] LV Systolic Volume Index 21.84 mL/m2 [facility] LV Vol,d A2C 113.63 mL [facility] LV Diastolic Volume Index 56.53 mL/m2 [facility] LA Volume Index 29.85 mL/m2 [facility] AoV Area, Vmax 1.84 cm2 [facility] AoV Area, VTI 2.14 cm2 [facility] AoV Vmax 1.73 m/s [facility] LA Area d A4C 64 cm2 [facility] LV,d 4.88 cm [facility] LV,s 3.34 cm [facility] LV Vol,d A4C 97.36 ml [facility] LV Vol,s A4C 36.81 ml [facility] RVSP (TR) 77.43 mmHg [facility] TR Vpeak 4.11 mm/s [facility] MV E A ratio 4.06 mmHg [facility] RA pressure 10.00 mmHg [facility] TR pk grad 67.43 mmHg [facility] MR peak grad 100.00 mmHg [facility] RVSP 77.43 mmHg [facility] LV SYS VOL 45.54 ml [facility] LV GROVES VOL 111.92 ml [facility] LA diam s 5.00 cm [facility] LA Vol MOD A4C 63.73 ml [facility] LV SV Teich 2D 66.38 ml [facility] LVOT SI 38.11 ml/m2 [facility] AoV Cusp sep 1.72 [facility] Aortic Root 2.70 cm [facility] AoV Vmn 0.97 [facility] IVS s 2D 1.47 [facility] LA Ao Ratio Mmode 1.84 [facility] HI End Groves Grad 7.80 [facility] HI End Diat Blaine 1.40 [facility] D E excurs 1.30 [facility] E f slope 0.10 [facility] E prime lat 0.12 [facility] E jojo sept 0.08 [facility] PV acc T slope 6.90 [facility] PV AT 145.33 msec [facility] AoV VTI 0.35 m [facility] LV EF,A2C 61.38 % [facility] LV EF,A4C 62.19 % [facility] LV EF,BP 59.49 % [facility] Charly [place],d A2C 7.98 cm [facility] Charly [place],d A4C 7.39 cm [facility] Charly [place],s A2C 7.42 cm [facility] Charly [place],s A4C 5.95 cm [facility] LV SV,A2C 69.74 % [facility] LV SV,A4C 60.54 % [facility] LV Vol,d BP 109.09 ml [facility] LV Vol,s BP 44.19 nl [facility] MR Vmax 5.00 m/s [facility] LVOT Vmn 0.67 [facility] Pt Size 162.56 [facility] Pt Wt 89.81 [facility] LVOT mean grad 2.07 mmHg [facility] LVPW s PLAX 1.59 cm [facility] MV Decel slope 7.90 m/s2 [facility] Narrative Performed At [facility] The left ventricle chamber size is normal. There is mild left ventricular Left Ventricular ejection fraction is 55 - 60%. Right ventricular size is upper limits of normal. The mitral valve appears thickened. There is mild mitral valve regurgitation. Severe pulmonary hypertension present. Unable to assess diastolic filling. Trace tricuspid valve regurgitation. No evidence of tricuspid valve stenosis. Severely elevated pulmonary artery systolic pressure. RA pressure is elevated. Severe pulmonary hypertension present. RVSP is 77 mmHg. Performing Organization Address City/State/Zipcode Phone Number [facility] [address] [place] [address] * Influenza antigen (07/31/2017 10:35 AM CDT) Only the most recent of 2 results within the time period is included. Influenza antigen Negative for Influenza A/B [facility] DEPARTMENT OF antigen. PATHOLOGY AND Comment: GENOMIC MEDICINE Specimen Information Specimen Source: Nares Specimen Site: Right Specimen Nares - Right Performing Organization Address City/State/Zipcode Phone Number [facility] [place] [address] [place] [address] PATHOLOGY AND GENOMIC MEDICINE * Gram stain (07/30/2017 11:25 PM CDT) Only the most recent of 3 results within the time period is included. Gram stain result Rare WBC's [facility] DEPARTMENT OF No organisms seen PATHOLOGY AND Comment: GENOMIC MEDICINE Specimen Information Specimen Source: Urine Specimen Site: Clean catch Specimen Urine Performing Organization Address City/[facility]/Zipcode Phone Number [facility] DEPARTMENT OF [address] [place] [address] PATHOLOGY AND GENOMIC MEDICINE * CT Head Wo Contrast (07/30/2017 10:25 PM CDT) Narrative Performed At EXAMINATION:[facility] CLINICAL HISTORY:near syncopegeneralized weakness COMPARISON:None. TECHNIQUE: Noncontrast head CT performed using radiation dose reduction techniques.Technical factors are evaluated and adjusted to ensure appropriate moderation of exposure.Automated dose management technology is applied to adjust radiation exposure while achieving a diagnostic quality image. FINDINGS: No evidence of acute intracranial hemorrhage, mass, mass effect, midline shift, or acute infarct. Ventricles and sulci are normal in appearance for patient's age.Basal cisterns are clear. Calcifications carotid siphons and intracranial vertebral arteries. Calvarium is intact. Bilateral lens extractions. No significant paranasal sinus mucosal thickening. Mastoid air cells are clear. IMPRESSION: 1. No CT evidence of acute intracranial abnormality. [facility]-[id number] Procedure Note Interface, Radiology Results Incoming - 07/30/2017 10:32 PM CDT EXAMINATION: CT HEAD WO CONTRAST CLINICAL HISTORY: near syncope generalized weakness COMPARISON: None. TECHNIQUE: Noncontrast head CT performed using radiation dose reduction techniques. Technical factors are evaluated and adjusted to ensure appropriate moderation of exposure. Automated dose management technology is applied to adjust radiation exposure while achieving a diagnostic quality image. FINDINGS: No evidence of acute intracranial hemorrhage, mass, mass effect, midline shift, or acute infarct. Ventricles and sulci are normal in appearance for patient's age. Basal cisterns are clear. Calcifications carotid siphons and intracranial vertebral arteries. Calvarium is intact. Bilateral lens extractions. No significant paranasal sinus mucosal thickening. Mastoid air cells are clear. IMPRESSION: 1. No CT evidence of acute intracranial abnormality. [id number] Performing Organization Address City/[facility]/Zipcode Phone Number [facility] [address] [place] [address] * CRITICAL CARE (07/30/2017 8:52 PM CDT) Narrative Performed At Bon Ahumada MD 07/31/20173:30 AM Critical Care Performed by: BON AHUMADA Authorized by: BON AHUMADA Critical care provider statement: Critical care time (minutes):35 Critical care start time:07/30/2017 9:32 PM Critical care time was exclusive of:Separately billable procedures and treating other patients Critical care was time spent personally by me on the following activities:Ordering and performing treatments and interventions, ordering and review of laboratory studies, ordering and review of radiographic studies, pulse oximetry, re-evaluation of patient's condition, obtaining history from patient or surrogate, examination of patient, evaluation of patient's response to treatment, discussions with consultants, development of treatment plan with patient or surrogate and blood draw for specimens Moisés 'yes' if you are taking over critical care for this patient from another provider.: no Comments: Hypoxia, pulmonary venous congestion and CHF exacerbation. * CRITICAL CARE (07/04/2017 6:35 PM CDT) Narrative Performed At Werojocelyne Warren, DO 07/05/2017 12:05 PM Critical Care Performed by: WERO WARREN Authorized by: WERO WARREN Critical care provider statement: Critical care time (minutes):60 Critical care time was exclusive of:Separately billable procedures and treating other patients Critical care was necessary to treat or prevent imminent or life-threatening deterioration of the following conditions:Cardiac failure Critical care was time spent personally by me on the following activities:Ordering and performing treatments and interventions, ordering and review of laboratory studies, ordering and review of radiographic studies, development of treatment plan with patient or surrogate, discussions with consultants, pulse oximetry, review of old charts, examination of patient, obtaining history from patient or surrogate and re-evaluation of patient's condition Moisés 'yes' if you are taking over critical care for this patient from another provider.: no * CRITICAL CARE (06/25/2017 6:05 AM CDT) Narrative Performed At Werojocelyne Warren, DO 06/25/20177:31 AM Critical Care Performed by: WERO WARREN Authorized by: WERO WARREN Critical care provider statement: Critical care time (minutes):60 Critical care end time:06/25/2017 7:29 AM Critical care was necessary to treat or prevent imminent or life-threatening deterioration of the following conditions:Respiratory failure and cardiac failure Critical care was time spent personally by me on the following activities:Ordering and performing treatments and interventions, ordering and review of laboratory studies, ordering and review of radiographic studies, pulse oximetry, re-evaluation of patient's condition, review of old charts, discussions with consultants, development of treatment plan with patient or surrogate, examination of patient, evaluation of patient's response to treatment and obtaining history from patient or surrogate Moisés 'yes' if you are taking over critical care for this patient from another provider.: no * Procalcitonin (05/14/2017 2:14 PM CDT) Procalcitonin 0.09 <=0.10 ng/mL [facility] Comment: INTERPRETIVE INFORMATION: Procalcitonin PCT greater than 2.00 ng/mL: PCT levels above 2.00 ng/mL on the first day of ICU admission represent a high risk for progression to severe sepsis and/or septic shock. PCT less than 0.50 ng/mL: PCT levels below 0.50 ng/mL on the first day of ICU admission represent a low risk for progression to severe sepsis and/or septic shock. If the PCT measurement is performed shortly after the systemic infection process has started (usually less than 6 hours), these values may still be low. As various non-infectious conditions are known to induce PCT as well, PCT levels between 0.5 ng/mL and 2.0 ng/mL should be reviewed carefully to take into account the specific clinical back-ground and condition(s) of the individual patient. Performed at: [facility] [address] [facility] [address] Specimen Serum Performing Organization Address City/State/Zipcode Phone Number [facility] [address] [place] [address] * XR Chest 2 Vw (03/06/2017 10:00 AM PROTECTIVE SIGNAL SUPERINTENDENT) Narrative Performed At EXAMINATION:XR CHEST 2 VW RADIANT CLINICAL HISTORY:SHORTNESS OF BREATH COMPARISON:March 04, 2017 FINDINGS: The heart is enlarged. The pulmonary vasculature appears increased and improved when compared to previous from 03/03/2017. The findings are most consistent with improving heart failure superimposed on chronic changes. There is no significant pleural fluid identified IMPRESSION: Cardiomegaly with decreasing pulmonary vascular congestion when compared to previous consistent with improving heart failure however mild diffuse vascular prominence persists [id number] Procedure Note Hm Interface, Radiology Results Incoming - 03/06/2017 11:04 AM PROTECTIVE SIGNAL SUPERINTENDENT EXAMINATION: XR CHEST 2 VW CLINICAL HISTORY: SHORTNESS OF BREATH COMPARISON: March 04, 2017 FINDINGS: The heart is enlarged. The pulmonary vasculature appears increased and improved when compared to previous from 03/03/2017. The findings are most consistent with improving heart failure superimposed on chronic changes. There is no significant pleural fluid identified IMPRESSION: Cardiomegaly with decreasing pulmonary vascular congestion when compared to previous consistent with improving heart failure however mild diffuse vascular prominence persists [id number] Performing Organization Address City/State/Zipcode Phone Number [facility] [address] [place] [address] * Echocardiogram complete w contrast and 3D if needed (03/05/2017 11:35 AM PROTECTIVE SIGNAL SUPERINTENDENT) Velocity Ratio (V1/V2) 0.64 m/s [facility] IVS,d 1.14 0.6 - 1.2 cm [facility] EF 57.86 % [facility] LA volume 84.0 cm3 [facility] LVPWD,d 1.17 cm [facility] AoV Mean PG 6.33 mmHg [facility] AV LVOT peak gradient 5.19 mmHg [facility] MV mean gradient 3.54 mmHg [facility] MV valve area p 1/2 3.62 cm2 [facility] method E/A ratio 3.24 [facility] E wave decelartion time 181.75 msec [facility] LVOT Diam,S 2.03 cm [facility] LVOT area 3.23 cm2 [facility] LVOT Vmax 1.14 m/s [facility] LVOT VTI 0.26 m [facility] AoV Peak PG 12.53 mmHg [facility] MV Peak E Blaine 1.65 m/s [facility] MV stenosis pressure 1/2 60.81 ms [facility] time MV Peak A Blaine 0.51 m/s [facility] LV Vol,s A2C 28.59 mL [facility] LV Vol,d A2C 85.62 mL [facility] AoV Area, Vmax 2.07 cm2 [facility] AoV Area, VTI 2.25 cm2 [facility] AoV Vmax 1.77 m/s [facility] LA Area d A4C 106 cm2 [facility] LV,d 5.06 cm [facility] LV,s 3.51 cm [facility] LV Vol,d A4C 96.14 ml [facility] LV Vol,s A4C 37.31 ml [facility] RVSP (TR) 82.01 mmHg [facility] TR Vpeak 4.39 mm/s [facility] MV E A ratio 3.21 mmHg [facility] RA pressure 5.00 mmHg [facility] TR pk grad 49.50 mmHg [facility] MR peak grad 10.80 mmHg [facility] RVSP 80.00 mmHg [facility] LV SYS VOL 51.32 ml [facility] LV GROVES VOL 121.79 ml [facility] LA diam s 4.80 cm [facility] LA Vol MOD A4C 106.30 ml [facility] LV SV Teich 2D 70.47 ml [facility] LVOT SI 44.14 ml/m2 [facility] MV Vmax 1.64 m [facility] MV VTI Tips 0.34 m [facility] AoV Cusp sep 1.98 [facility] Aortic Root 2.89 cm [facility] AoV Vmn 1.20 [facility] IVS s 2D 1.61 [facility] LA Ao Ratio Mmode 1.66 [facility] HI End Groves Grad 2.11 [facility] HI End Diat Blaine 0.73 [facility] D E excurs 2.20 [facility] E f slope 0.05 [facility] E prime lat 0.09 [facility] E jojo sept 0.07 [facility] PV acc T slope 8.00 [facility] PV AT 103.81 msec [facility] AoV VTI 0.38 m [facility] LV EF,A2C 66.60 % [facility] LV EF,A4C 61.19 % [facility] LV EF,BP 62.33 % [facility] [place]arly [place],d A2C 7.03 cm [facility] Charly [place],d A4C 7.24 cm [facility] Charly [place],s A2C 5.67 cm [facility] Charly [place],s A4C 6.34 cm [facility] LV SV,A2C 57.02 % [facility] LV SV,A4C 58.83 % [facility] LV Vol,d BP 90.82 ml [facility] LV Vol,s BP 34.22 nl [facility] MR Vmax 4.18 m/s [facility] LVOT Vmn 0.80 [facility] Pt Size 160.02 [facility] Pt Wt 90.26 [facility] LVOT mean grad 2.77 mmHg [facility] LVPW s PLAX 1.36 cm [facility] MV Decel slope 9.07 m/s2 [facility] Narrative Performed At [facility] The left ventricle chamber size is normal. There is mild left ventricular concentric hypertrophy. Left Ventricular ejection fraction is 55 - 60%. Right ventricular size is normal. Right atrium size upper limits of normal. No pericardial effusion Mild mitral valve regurgitation The mitral valve appears thickened. Unable to assess diastolic filling. Mild tricuspid valve regurgitation. No evidence of tricuspid valve stenosis. Severe pulmonary hypertension present. RVSP is 80 mmHg Performing Organization Address City/State/Zipcode Phone Number [facility] [address] [place] [address] * CT Abdomen Pelvis W Contrast (02/11/2017 3:00 PM PROTECTIVE SIGNAL SUPERINTENDENT) Narrative Performed At EXAMINATION:CT ABDOMEN PELVIS W CONTRAST RADIANT CLINICAL HISTORY:hematuria TECHNIQUE: Multiple axial images of the abdomen and pelvis were obtained following intravenous administration of iodinated contrast. Sagittal and coronal computerized reformatted images were also obtained. Radiation dose reduction technique was utilized. COMPARISON:August 06, 2016 IMPRESSION: Abdomen: 1. No change in size or appearance of left adrenal mass. 2.Liver, spleen, pancreas, right adrenal, and kidneys do not demonstrate any new masses. Kidneys again noted to be shrunken compatible with chronic renal failure. 3.There is no retroperitoneal adenopathy or ascites. 4.There is no intestinal obstruction. 5.There is a ventral hernia containing fat. Pelvis: 1. Right lower quadrant renal transplant is unremarkable. No hydronephrosis or perinephric fluid is seen. 2.There is no pelvic mass, adenopathy, or free fluid. 3.There is a lower midline ventral abdominal wall hernia containing fat. [facility]-[id number] Procedure Note Interface, Radiology Results Incoming - 02/11/2017 3:52 PM PROTECTIVE SIGNAL SUPERINTENDENT EXAMINATION: CT ABDOMEN PELVIS W CONTRAST CLINICAL HISTORY: hematuria TECHNIQUE: Multiple axial images of the abdomen and pelvis were obtained following intravenous administration of iodinated contrast. Sagittal and coronal computerized reformatted images were also obtained. Radiation dose reduction technique was utilized. COMPARISON: August 06, 2016 IMPRESSION: Abdomen: 1. No change in size or appearance of left adrenal mass. 2. Liver, spleen, pancreas, right adrenal, and kidneys do not demonstrate any new masses. Kidneys again noted to be shrunken compatible with chronic renal failure. 3. There is no retroperitoneal adenopathy or ascites. 4. There is no intestinal obstruction. 5. There is a ventral hernia containing fat. Pelvis: 1. Right lower quadrant renal transplant is unremarkable. No hydronephrosis or perinephric fluid is seen. 2. There is no pelvic mass, adenopathy, or free fluid. 3. There is a lower midline ventral abdominal wall hernia containing fat. [id number] Performing Organization Address [facility] Phone Number [facility] [address] [place] [phone] * INCISION AND DRAINAGE (02/11/2017 1:18 PM PROTECTIVE SIGNAL SUPERINTENDENT) Narrative Performed At ERICA Menendez 02/11/20175:16 AM I&D/Aspiration/Amputation Performed by: BRENDAN MONCADA Authorized by: MARINE SHARMA Consent: Consent obtained:Verbal Consent given by:Patient Risks discussed:Bleeding, incomplete drainage, pain, infection and damage to other organs Alternatives discussed:No treatment, delayed treatment, alternative treatment, observation and referral Location: Type:Abscess Location:Lower extremity Lower extremity location:L leg Pre-procedure details: Skin preparation:Betadine Anesthesia (see MAR for exact dosages): Anesthesia method:Local infiltration Local anesthetic:Lidocaine 1% w/o epi Procedure details: Complexity:Simple Needle aspiration: No Incision types:Stab incision Size (cm):2 Scalpel blade:11 Wound management:Irrigated with saline and probed and deloculated Drainage:Purulent Drainage amount:Moderate Packing materials:1/2 in gauze Amount 1/2":2 inches Post-procedure details: Patient tolerance of procedure:Tolerated well, no immediate complications * Aerobic culture (02/10/2017 5:53 PM PROTECTIVE SIGNAL SUPERINTENDENT) Aerobic culture isolate Actinomyces neuii [facility] DEPARTMENT OF Recovered in Broth only: PATHOLOGY AND , identification to follow GENOMIC MEDICINE (A) Comment: Specimen Information Specimen Source: Abscess Specimen Site: ThighNot specified ThighNot specified Specimen Abscess Performing Organization Address City/[facility] Phone Number [facility] DEPARTMENT [address] [address] PATHOLOGY AND GENOMIC MEDICINE * Anaerobic culture (02/10/2017 5:53 PM PROTECTIVE SIGNAL SUPERINTENDENT) Anaerobic culture isolate Actinobaculum massiliense [facility] DEPARTMENT OF The performance PATHOLOGY AND characteristics of this assay GENOMIC MEDICINE on this isolate were validated by the Microbiology Laboratory at [facility].This source has not been approved by the U.S. Food and Drug Administration.The results are not intended to be used as the sole means for clinical diagnosis or patient management.The Microbiology Laboratory is authorized under the clinical Laboratory Improvement Amendments of 1988 (CLIA-88) to perform high complexity testing. (A) Comment: Specimen Information Specimen Source: Abscess Specimen Site: ThighNot specified ThighNot specified Anaerobic culture isolate Anaerococcus species [facility] DEPARTMENT OF The [facility] PATHOLOGY AND characteristics of this assay GENOMIC MEDICINE on this isolate were validated by the Microbiology Laboratory at [facility].This source has not been approved by the U.S. Food and Drug Administration.The results are not intended to be used as the sole means for clinical diagnosis or patient management.The Microbiology Laboratory is authorized under the clinical Laboratory Improvement Amendments of 1988 (CLIA-88) to perform high complexity testing. (A) Anaerobic culture isolate Peptoniphilus harei [facility] DEPARTMENT OF The [facility] PATHOLOGY AND characteristics of this assay GENOMIC MEDICINE on this isolate were validated by the Microbiology Laboratory at [facility].This source has not been approved by the U.S. Food and Drug Administration.The results are not intended to be used as the sole means for clinical diagnosis or patient management.The Microbiology Laboratory is authorized under the clinical Laboratory Improvement Amendments of 1988 (CLIA-88) to perform high complexity testing. (A) Specimen Abscess - Leg Performing Organization Address City/State/Zipcode Phone Number [facility] DEPARTMENT OF [address] [place] [phone] PATHOLOGY AND GENOMIC MEDICINE * Bedside glucose (02/04/2017 10:19 PM PROTECTIVE SIGNAL SUPERINTENDENT) Only the most recent of 2 results within the time period is included. POC glucose 141 Specimen Blood after 01/30/2017 Insurance Payer Benefit Subscriber ID Type Phone Address Plan / Group [facility] MEDICARE AARP xxxxxxxxx O MEDICARE COMPLETE MCR Advance Directives Patient has advance care planning documents, and code status on file. For more i nformation, please contact: [address] [address] Date Inactivated Comments Code Status Date Activated 11/12/2017 10:12 PM Full Code 11/06/2017 10:57 PM Code Status decision reached by: Patient 10/26/2017 8:15 PM Full Code 10/24/2017 8:23 PM Code Status decision reached by: Patient 08/27/2017 9:18 PM Full Code 08/24/2017 8:17 PM Code Status decision reached by: Patient 03/08/2017 7:58 PM Full Code 03/04/2017 11:37 AM Code Status decision reached by: Patient 02/12/2017 3:10 PM Full Code 02/10/2017 10:41 PM Code Status decision reached by: Patient
--- OUTSIDE RECORDS SUMMARY | 2018-01-31 06:21 | XMS REPORT ---
Author Author [facility] Address Unknown Phone Unavailable Care Team Providers Care Branch Sales And Service Representative Name Role Phone Sinan JOHNSON Unavailable Unavailable Problems This patient has no known problems. Allergies, Adverse Reactions, Alerts This patient has no known allergies or adverse reactions. Medications This patient has no known medications. Results Test Description Test Time Test Comments Text Results Atomic Results Result Comments CT ABDOMEN/PELVIS WO 2018-01-31 05:45:00 [place] [address] Patient Name: VIPIN AU MR #: [id number] : 1950 Age/Sex: 67/F Req #: [id number] Adm Physician: Ordered by: RAJ JOHNSON MD Report #: [id number] Location: ER Room/Bed: Procedure: [id number] CT/CT ABDOMEN/PELVIS WO Exam Date: 01/31/18 Exam Time: 514 REPORT STATUS: Signed EXAM: CT ABDOMEN/PELVIS WO DATE: 01/31/2018 4:19 AM INDICATION: abd pain n/v/d, oral contrast, pt has kidney transplant [id number] Y COMPARISON: None TECHNIQUE: The abdomen and pelvis were scanned using a multidetector helical scanner. Coronal and sagittal reformations were obtained. CT low dose techniques were utilized, as applicable. IV Contrast: 0 ml Isovue 300/370 FINDINGS: Lack of IV contrast decreases sensitivity in evaluating abdominal and pelvic organs. LOWER THORAX: Cardiomegaly with small pericardial effusion. Mosaic attenuation. Mild bibasilar opacities may reflect atelectasis and/or edema. LIVER: Enlarged hepatic veins and IVC which can be seen with passive hepatic congestion. Morphologic changes with hypertrophy of the caudate and recanalized paraumbilical vein suggesting underlying cardiac cirrhosis. GALLBLADDER: Surgically absent SPLEEN: Spleen upper limits of normal in size. PANCREAS: Fatty replaced ADRENALS: Indeterminate 3.4 cm left adrenal nodule (attenuation 40). Slightly nodular right adrenal. KIDNEYS: Atrophic need of kidneys. Right lower quadrant renal transplant without hydronephrosis. GI TRACT: There is mild small bowel wall thickening. No evidence of obstruction. Incidental diverticulosis and normal appendix. VESSELS: Diffuse atherosclerotic calcifications PERITONEUM/RETROPERITONEUM: No free air or fluid LYMPH NODES: No lymphadenopathy REPRODUCTIVE ORGANS/BLADDER: Unremarkable SOFT TISSUES: Postsurgical changes along the anterior abdominal wall. Several fat-containing ventral hernias. BONES: No suspicious bone lesions. IMPRESSION: 1. Findings of enteritis, likely infectious or inflammatory. 2. Indeterminate left adrenal nodule (3.4 cm). Recommend nonemergent follow-up CT adrenal mass protocol. 3. Atrophic [place] kidneys. Right lower quadrant renal transplant without hydronephrosis. 4. Findings suspicious for cardiac cirrhosis. Signed by: Dr Joseph Mitchell MD on 01/31/2018 5:54 AM Dictated By: JOSEPH MITCHELL MD 3 Transcribed By: YARIEL on 01/31/18553 COPY TO: RAJ JOHNSON MD CHEST SINGLE (PORTABLE) 2018-01-31 05:43:00 [place] [address] Patient Name: VIPIN AU MR #: [id number] : 1950 Age/Sex: 67/F Req #: [id number] Adm Physician: Ordered by: RAJ JOHNSON MD Report #: [id number] Location: ER Room/Bed: Procedure: [id number] DX/CHEST SINGLE (PORTABLE) Exam Date: 01/31/18 Exam Time: 0525 REPORT STATUS: Signed CHEST SINGLE (PORTABLE), 01/31/2018 4:19 AM Technique: CHEST SINGLE (PORTABLE) Comparison: None available. Clinical history: Chest pain Findings: See Impression Impression: Limited by portable technique and soft tissue attenuation. 1. Enlarged cardiomediastinal silhouette 2. Central vascular congestion and/or mild edema. 3. No effusion or pneumothorax. Signed by: Dr Joseph Mitchell MD on 01/31/2018 5:44 AM Dictated By: JOSEPH MITCHELL MD 3 Transcribed By: YARIEL on 01/31/18543 COPY TO: RAJ JOHNSON MD
--- NOTE | 2018-01-31 06:30 | NUR ---
PT WILL NOT KEEP SPO2 ON FINGER, SPOT CHECKED, READING 88% ON 2 LITERS, REPOSITIONED SENSOR, REPOSITIONED PATIENT. INCREASED O2 TO 4L NC, INST TO TAKE SLOW DEEP BREATHS THROUGH NOSE, SPO2 UP TO 94%. DR JOHNSON AWARE
[2018-01-31] MEDS ORDERED: METRONIDAZOLE 500MG/NS 100ML IV SCH ×3 (06:37→12:00)
[2018-01-31] MEDS: METRONIDAZOLE 500MG/NS 100ML 100 ML IV SCH ×3 (07:09→21:11)
--- NOTE | 2018-01-31 07:41 | History and Physical ---
The patient is here for nausea, vomiting, diarrhea, and abdominal pain for the last 3 days. HISTORY OF PRESENT ILLNESS: This is Ms. Villalpando with a history of renal transplant was in her usual state of health until about a day or 2 prior to admission. The patient started to have some right upper quadrant pain and epigastric pain radiating to the right and to the left, and described as 5/10 with maximum intensity. The patient had associated nausea, vomiting and diarrhea. The patient also had a son who had been exposed to the same virus. The patient continued to have this. With the continuous nausea and vomiting, she came into the emergency room and was admitted for dehydration and also for acute infectious process. PAST MEDICAL HISTORY 1. History of atrial fibrillation. 2. History of depression. 3. History of diabetes mellitus. 4. History of hypertension. 5. History of gastroparesis. 6. History of neuropathy. 7. History of reflux esophagitis. 8. History of renal transplant. MEDICATIONS: That she takes at home are: 1. Calcitonin 0.25 mcg daily. 2. Calcium carbonate 500 mg daily. 3. Lexapro 10 mg daily. 4. Lasix 40 mg twice a day. 5. Gabapentin 400 mg 3 times a day. 6. Losartan 50 mg daily. 7. Magnesium oxide 400 mg daily. 8. Metformin 500 mg daily. 9. Mycophenolate 250 mg to 500 mg twice a day. 10. Reglan 10 mg at nighttime. 11. Nifedipine 30 mg daily. 12. Omeprazole 40 mg daily. 13. Potassium 10 mEq daily. 14. Prednisone 5 mg daily. 15. Simvastatin 20 mg at nighttime. 16. Tacrolimus 1 mg capsule daily. 17. Tramadol 50 mg as needed. 18. Eliquis 5 mg twice a day. PAST SURGICAL HISTORY: History of kidney transplant in 2010, history of cholecystectomy, history of , and AV fistula also. REVIEW OF SYSTEMS: Negative for chest pain. No shortness of breath. Positive for nausea, vomiting and diarrhea. Negative for constipation. No rectal bleed. No hematochezia or hematemesis. No back pain. No skin rashes. No history of chills. The patient is extremely fatigued from the continuous nausea and throwing up. ALLERGIES: PENICILLIN. SOCIAL HISTORY: No ETOH. No IV drug abuse. Lives with son. No alcohol or drug abuse noted. FAMILY HISTORY: History of diabetes, hypertension and coronary artery disease. PHYSICAL EXAMINATION VITAL SIGNS: Temperature is 98.4. Temperature when she came was 99.4, pulse of 97, blood pressure is 143/99, pulse ox 93% on room air. HEENT: Normocephalic and atraumatic. Pupils are reactive to light and accommodation. CV: S1 and S2 regular. ABDOMEN: Tender in the epigastric area, right upper quadrant and left upper quadrant too. EXTREMITIES: Trace edema. LABORATORY VALUES: Urine protein was 1+ positive, rbcs 6-10. Chemistry: Sodium 142, potassium 3.7, BUN of 28, creatinine of 1.2, estimated GFR is 45. Total bilirubin of 1.9. Lipase is 81. Coags have been PT 17.6, INR 1.33. IMAGING STUDIES: The patient's chest x-ray showed no effusions, central vascular congestion, mild edema, enlarged cardiomediastinal silhouette. Abdominal CT shows findings of enteritis, likely infectious or inflammatory. Indeterminate left adrenal nodule. Recommend nonemergent followup CT per mass protocol. Atrophic picayune kidneys and findings suspicious of cardiac cirrhosis. ASSESSMENT 1. Dehydration. 2. Acute gastroenteritis. 3. Acute kidney injury. 4. Hydronephrosis of the renal transplant kidney. PLAN: Will be keep the patient in the hospital. Microbiology, urine cultures and stool cultures will be done. A GI consult will also be done for enteritis. Consult with Dr. Hansen for hydronephrosis and Dr. Hubbard for acute kidney injury and history of transplant will be done. Labs will be followed in the morning. The patient's medications have been restarted. Further recommendations per clinical course. Will continue to monitor the patient along with the consultants. Job#: [id number] BHASKAR
--- NOTE | 2018-01-31 07:45 | NUR ---
Patient repositioned for comfort at this time. Will continue to monitor patient.
[2018-01-31] MEDS ORDERED: PROMETHAZINE 12.5MG/ NACL 0.9% 12.5 MG/50 ML BAG IV ONE (08:00)
[2018-01-31] MEDS: INSULIN REGULAR, HUMAN 100 UNIT/1 ML 3ML VIAL SQ SCH ×4 (08:05→21:11)
[2018-01-31] MEDS ORDERED: METFORMIN HCL 500 MG TAB PO SCH (09:00)
[2018-01-31] MEDS ORDERED: NON-FORMULARY MEDICATION ([Eliquis] 5 MG) PO SCH (09:00)
[2018-01-31] MEDS ORDERED: POTASSIUM CHLORIDE 10MEQ EA PO SCH (09:00)
[2018-01-31] MEDS ORDERED: FUROSEMIDE 40 MG TAB PO SCH (09:00)
[2018-01-31] MEDS ORDERED: CALCITRIOL 0.25 MCG CAP PO SCH ×2 (09:00)
[2018-01-31] MEDS ORDERED: GABAPENTIN 300 MG CAP PO SCH (09:00)
[2018-01-31] MEDS ORDERED: LOSARTAN POTASSIUM 25 MG TAB PO SCH (09:00)
--- NOTE | 2018-01-31 09:05 | NUR ---
Patient unable to take medications at this time due to drowziness. Patient did recieve IV phenergan this morning. Dr. Meléndez notified of patient status and new orders to stop fluids at this time. Will continue to closely monitor.
[2018-01-31] MEDS ORDERED: LEVALBUTEROL HCL SOLN NEBU 0.63 MG/3 ML NEB INH ONE (09:15)
--- NOTE | 2018-01-31 09:20 | NUR ---
Rt called for ordered breathing treatments.
[2018-01-31] MEDS: CEFOXITIN 1GM/ NS 50ML 50 ML IV SCH ×2 (09:39→17:48)
--- NOTE | 2018-01-31 09:43 | NUR ---
Dr. Meléndez states to administer morning medications when patient is fully awake. Will continue to monitor patient.
[2018-01-31] MEDS ORDERED: IPRATROPIUM BROMIDE 0.02% 2.5 ML NEB NEB ONE (10:00)
[2018-01-31] MEDS ORDERED: FUROSEMIDE INJ 10 MG/ML 2 ML VIAL IV ONE (10:00)
[2018-01-31] MEDS: ESCITALOPRAM OXALATE 10 MG TAB PO SCH (10:14)
[2018-01-31] MEDS: OYST-CAL-D 500MG TABLET PO SCH ×2 (10:14→17:48)
[2018-01-31] MEDS: MAGNESIUM OXIDE 400 MG TAB PO SCH ×2 (10:14→17:48)
[2018-01-31] MEDS: PANTOPRAZOLE SOD 40 MG TABEC PO SCH (10:15)
[2018-01-31] MEDS: TACROLIMUS 1 MG CAP PO SCH ×2 (10:15→17:48)
[2018-01-31] MEDS: PREDNISONE 5 MG TAB PO SCH (10:15)
[2018-01-31] MEDS: NIFEDIPINE CR 30 MG TAB PO SCH (10:15)
[2018-01-31] MEDS: CALCITRIOL 0.25 MCG CAP PO SCH (10:16)
[2018-01-31] MEDS: APIXABAN 5 MG TABLET PO SCH ×2 (10:16→17:48)
[2018-01-31] MEDS: MYCOPHENOLATE MOFETIL 250 MG CAP PO SCH ×2 (10:25→17:48)
[2018-01-31] MEDS ORDERED: TRAMADOL HCL 50 MG TAB PO PRN (10:30)
--- NOTE | 2018-01-31 11:12 | Consultation ---
DATE OF CONSULTATION: January 31, 2018 UROLOGY CONSULTATION REASON FOR CONSULTATION: Urinary retention. HISTORY OF PRESENT ILLNESS: Cassie Finn is a 67-year-old woman who had a kidney transplant due to chronic renal failure and atrophic kidneys. The patient is being admitted for enteritis. The patient was found to be in urinary retention for 500 mL. A Spaulding catheter was placed. Urological consultation was sought. The patient right now is extremely somnolent, status post a dose of Phenergan and obtaining any data from the patient is very difficult due to the fact that she is virtually nonverbal. Most information is obtained from discussion with the medical staff, as well as review of the patient's chart. PAST MEDICAL AND SURGICAL HISTORY 1. Atrial fibrillation. 2. Depression. 3. Diabetes mellitus. 4. Hypertension. 5. Gastroparesis. 6. Neuropathy. 7. Reflux esophagitis. 8. Status post right kidney transplant. 9. Status post section. 10. History of dialysis access procedures. 11. Status post cholecystectomy. ALLERGIES: PENICILLIN. MEDICATIONS: Please refer to the MAR. REVIEW OF SYSTEMS: Negative for all other systems. FAMILY HISTORY: Noncontributory to the active urological problems. SOCIAL HISTORY: The patient denies alcohol or drug use. PHYSICAL EXAMINATION GENERAL: Very somnolent woman sitting up in bed in no apparent distress. VITALS: She is currently afebrile. Vital signs are currently stable. ABDOMEN: Soft and nondistended. It is difficult to assess tenderness at the present time. There is an umbilical hernia and scars consistent with the above renal transplant. GENITOURINARY: There is a Spaulding catheter in place. For the remaining physical examination, please refer to the dictated . . . Hemoglobin is low at 10.4. Sodium is low at 132. Creatinine is slightly elevated . . PT is elevated at 17.6. INR of 1.23. Urinalysis significant for 6-[address] scan of the abdomen and pelvis reveals atrophic [place] kidneys. There is a 3.4 left adrenal mass, suspicion for cardiac cirrhosis and right lower quadrant renal transplant without hydronephrosis. ASSESSMENT 1. Urinary retention for 500 mL. 2. Probable neurogenic bladder due to neuropathy. 3. Umbilical hernia. 4. Spaulding catheter in situ. 5. Leukocytosis. 6. Anemia. 7. Hyponatremia. 8. Chronic renal failure: Status post transplantation in 2010 with good result. 9. Microhematuria. 10. Atrophic [place] kidneys. 11. Left adrenal mass. PLAN 1. Keep the Spaulding catheter in place. 2. Await culture of the urine and treat if needed. 3. The patient will need a full urological workup, including urodynamic test. Will be done in the office, as well as cystoscopic examination. This workup can be done as an outpatient. Once the patient is medically better, she may be discharged with a Spaulding catheter to a leg bag with outpatient followup in my office. Thank you very much for involving us in the care of your patient. Will be happy to follow her along with you, as well as an outpatient. Job#: [id number] BHASKAR
--- NOTE | 2018-01-31 11:40 | NUR ---
Stool sent to lab at this time
--- NOTE | 2018-01-31 11:49 | NUR ---
Patient noted to have had a BM at this time. Patient cleaned up and new brief applied. Patient continues to rest and is arousable to stimuli.
--- NOTE | 2018-01-31 11:56 | NUR ---
Dr. Meléndez notified of patient being febrile at this time. New orders obtained.
[2018-01-31] MEDS ORDERED: ACETAMINOPHEN 325 MG TAB PO PRN (12:00)
[2018-01-31 12:22] LABS: BASOPHILS % 0.1 % (0.0-1.0); HEMATOCRIT 30.5 % (34.2-44.1); LYMPHOCYTES # (AUTO) 0.3 (1.0-3.2); LYMPHOCYTES % 3.4 % (18.0-39.1); MEAN CORPUSCULAR HEMOGLOBIN 23.5 pg (28-32); MEAN CORPUSCULAR HGB CONC 30.2 g/dL (31-35); MEAN CORPUSCULAR VOLUME 77.8 fL (81-99); MONOCYTES # (AUTO) 0.4 (0.2-0.8); NEUTROPHILS # (AUTO) 6.9 (2.1-6.9); NEUTROPHILS % 91.1 % (38.7-80.0); PLATELET COUNT 157 x10e3/uL (140-360); RED BLOOD COUNT 3.92 x10e6/uL (3.6-5.1); RED CELL DISTRIBUTION WIDTH 19.1 % (11.7-14.4)
[2018-01-31 12:32] LABS: HEMOGLOBIN 9.2 g/dL (12.0-16.0)
--- NOTE | 2018-01-31 12:33 | NUR ---
REC'D REPORT ON RM 4 from BRAD JEAN. WILL CONTINUE TO MONITOR
[2018-01-31 12:41] LABS: ALBUMIN 2.9 g/dL (3.5-5.0); ALBUMIN/GLOBULIN RATIO 0.9 (0.8-2.0); ALKALINE PHOSPHATASE 50 IU/L (40-150); ANION GAP 11.6 mmol/L (8-16); BLOOD UREA NITROGEN 29 mg/dL (7-26); BUN/CREATININE RATIO 24 (6-25); CARBON DIOXIDE 25 mmol/L (22-29); CHLORIDE 103 mmol/L (98-107); EST GLOMERULAR FILTRATION RATE 45 ML/MIN (60-); GLUCOSE 271 mg/dL (74-118); POTASSIUM 3.6 mmol/L (3.5-5.1); SODIUM 136 mmol/L (136-145)
[2018-01-31 12:43] LABS: ALANINE AMINOTRANSFERASE < 6 IU/L (0-55)
[2018-01-31 12:48] LABS: WBC,FECAL (FECAL LACTOFERRIN) POSITIVE (NEGATIVE)
[2018-01-31 13:15] LABS: C DIFFICILE TOXIN A&B AMP PROB NEGATIVE (NEGATIVE)
[2018-01-31] MEDS ORDERED: IBUPROFEN 400 MG TAB PO PRN (13:15)
--- NOTE | 2018-01-31 13:47 | NUR ---
RT called for ABG.
[2018-01-31] MEDS ORDERED: CEFOXITIN 1GM/ NS 50ML 50 ML IV SCH (14:00)
[2018-01-31 14:30] LABS: ABG HCO3 24 mmol/L (23-28); ABG PCO2 36 mmHg (41-51); ABG PH 7.43 (7.31-7.41); ABG PO2 75 mmHg (80-105)
--- NOTE | 2018-01-31 15:20 | NUR ---
Dr. Meléndez at bedside assessing patient. New orders obtained. Patient also placed on hospital bed at this time.
--- NOTE | 2018-01-31 17:07 | Diagnostic Imaging Report ---
History:Altered Mental status Comparison studies: None Technique: Axial images were obtained from the skull base to the vertex. Coronal and sagittal images reconstructed from the axial data. Dose modulation, iterative reconstruction, and/or weight based adjustment of the mA/kV was utilized to reduce the radiation dose to as low as reasonably achievable. Intravenous contrast: None Findings: Scalp/skull: No abnormalities. Extra-axial spaces: No masses. No fluid collections. Brain sulci: Mildly prominent. Ventricles: Mild compensatory dilatation. No hydrocephalus. Parenchyma: No abnormal densities. No masses, hemorrhage, acute or chronic cortical vascular insults. Sellar/suprasellar region: No abnormalities. Craniocervical junction: Patent foramen magnum. No Chiari one malformation. Incidental findings: Atherosclerotic calcifications in the carotid siphons . Impression: 1. Mild generalized volume loss. 2. Otherwise, no abnormalities. Signed by: Dr. Klaus Branham M.D. on 01/31/2018 5:04 PM
--- NOTE | 2018-01-31 18:54 | Consultation ---
DATE OF CONSULTATION: January 31, 2018 HISTORY OF PRESENT ILLNESS: The patient was seen in the emergency room. Ms. Cassie Regalado is known to our nephrology service. She is a 67-year-old female with underlying history of type 2 diabetes. 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 b.i.d., Prograf 3 mg b.i.d. and prednisone 5 mg daily. She has evidence of altered mental status, etiology unclear. She was given 2 doses of Phenergan earlier on. She is barely arousable. She is moving all 4 extremities. Renal consulted because of her kidney transplant status. Recent bilirubin is 1.9. AST 7, ALT less than 6, alkaline phosphatase 50. Potassium 3.6. Sodium 136. Bicarbonate 25. Creatinine 1.20 with a blood sugar 271. CBC shows a hemoglobin of 9.2, white count 7.6, previously was 12.03. Urinalysis relatively benign. Blood and urine cultures are pending. Unable to get review of systems or any history at this point in time given the patient's medical status. CURRENT MEDICATIONS: Besides the transplant medication, she is on potassium chloride 20 mEq daily, which I am going to stop and will also hold on Zocor given the elevated total bilirubin, etiology unclear. Will discontinue tramadol. Discontinue gabapentin. Discontinue metformin. Discontinue losartan and discontinue ibuprofen. Patient currently was given Flagyl doses. She also takes Calcitriol 25 mcg daily. She takes Eliquis 5 mg p.o. b.i.d. She was receiving IV fluids which was held. She is on Mefoxin 1 gram IV q. 8. Infectious disease has been consulted. PHYSICAL EXAMINATION: GENERAL: Barely arousable, does not follow commands. VITALS: Blood pressure 109/51. Pulse rate 72. Afebrile. Oxygen saturation 99% on nasal cannula oxygen. HEAD AND NECK: No icterus noted. Pupils are sluggishly reactive. Oral mucosa dry. LUNGS: Scattered rales with rhonchi, mostly lower third, right more than left. HEART: S1 and S2 audible. ABDOMEN: Otherwise soft and nontender. LOWER EXTREMITY EXAMINATION: Shows no edema. IMPRESSION: History of diabetes, cadaveric transplant. Electrolytes appear stable. No metabolic reason for mental status issue. Blood gas noted. CT brain ordered. Her most recent blood gas shows pH 743, pCO2 of 36, pO2 of 75. Cultures are pending. Empirically on antibiotics. Resume transplant immunosuppression medications. Discussed Daniel, the patient's nurse, at bedside. Discussed with Dr. George. Job#: [id number] LISSA
--- NOTE | 2018-01-31 19:12 | NUR ---
Walking rounds with DENIS Sharma. Patient in no distress at this time.
[2018-01-31] MEDS ORDERED: GABAPENTIN 400 MG CAP PO SCH (21:00)
[2018-01-31] MEDS ORDERED: SIMVASTATIN 20 MG TAB PO SCH (21:00)
--- NOTE | 2018-01-31 21:10 | NUR ---
BS - 123 AT THIS TIME.
[2018-01-31] MEDS: METOCLOPRAMIDE HCL 10 MG TAB PO SCH (21:11)
[2018-02-01] VITALS (11 sets, daily range): BP systolic 86–130; BP diastolic 37–80
--- NOTE | 2018-02-01 00:45 | NUR ---
Received patient from ER. patient is alert and oriented x 3. patient has a Spaulding, patient has a hx of dm,cad,chf, kidney transplant, patient is currently on 3l nc. patient came to the ER with cc of vomiting and diarrhoea for almost four days, patient states weakness. Patient welcomed and offered a bed, safety and fall precautions maintained as per hospital protocol: bed in lowest position and locked, needed items beside bed and call fenton placed close to patient, patient instructed to use it to call nurses for any assistance needed, patient verbalized understanding. patient is currently stable will continue to monitor.
[2018-02-01] MEDS: METRONIDAZOLE 500MG/NS 100ML 100 ML IV SCH ×4 (02:23→19:00)
[2018-02-01] MEDS: CEFOXITIN 1GM/ NS 50ML 50 ML IV SCH ×3 (03:47→17:12)
[2018-02-01 06:59] LABS: BASOPHILS % 0.2 % (0.0-1.0); EOSINOPHILS % 0.6 % (0.0-6.0); HEMATOCRIT 29.9 % (34.2-44.1); HEMOGLOBIN 8.9 g/dL (12.0-16.0); LYMPHOCYTES # (AUTO) 0.9 (1.0-3.2); LYMPHOCYTES % 17.2 % (18.0-39.1); MEAN CORPUSCULAR HEMOGLOBIN 23.5 pg (28-32); MEAN CORPUSCULAR HGB CONC 29.8 g/dL (31-35); MEAN CORPUSCULAR VOLUME 79.1 fL (81-99); MONOCYTES # (AUTO) 0.5 (0.2-0.8); MONOCYTES % 9.9 % (4.4-11.3); NEUTROPHILS # (AUTO) 3.8 (2.1-6.9); NEUTROPHILS % 71.7 % (38.7-80.0); PLATELET COUNT 150 x10e3/uL (140-360); RED BLOOD COUNT 3.78 x10e6/uL (3.6-5.1); RED CELL DISTRIBUTION WIDTH 19.2 % (11.7-14.4)
[2018-02-01 07:11] LABS: ALBUMIN 2.7 g/dL (3.5-5.0); ANION GAP 12.6 mmol/L (8-16); CREATININE, SERUM 1.42 mg/dL (0.57-1.11); POTASSIUM 3.6 mmol/L (3.5-5.1)
[2018-02-01] MEDS: INSULIN REGULAR, HUMAN 100 UNIT/1 ML 3ML VIAL SQ SCH ×4 (07:30→21:53)
--- NOTE | 2018-02-01 07:35 | NUR ---
Patient endorsed to next shift for continuity of care.
--- NOTE | 2018-02-01 07:56 | Progress Note ---
DATE: The patient is here for acute gastroenteritis, nausea, vomiting, and diarrhea. The patient is feeling better today. Nausea, vomiting and diarrhea has been stopped. The patient is currently awake, alert and oriented times 3, and talking. The patient's mental status has gotten back to normal compared to yesterday. OBJECTIVE VITAL SIGNS: Temperature is 98.4, afebrile for the last 12 hours, pulse of 78, T-max was 99.5, respirations of 19, pulse oximetry 98% on 2 L of oxygen. GENERAL: The patient is alert and oriented times 3. HEENT: Normocephalic and atraumatic. Pupils are reactive to light and accommodation. CV: S1 and S2 normal. Regular rate and rhythm. ABDOMEN: Nontender and nondistended. EXTREMITIES: Trace edema present. LABORATORY VALUES: Today's chemistries are pending. Hemoglobin is pending too. Yesterday, ABG showed 7.43, pCO2 of 36 and pO2 of 75. MEDICATIONS: Cefoxitin and Flagyl has been given for possible GI enteritis or colitis. The patient is also on: 1. Reglan 5 mg twice a day. 2. Apixaban 5 mg twice a day for atrial fibrillation. 3. Regular antirejection medication. 4. CellCept and tacrolimus has been started. 5. The patient is getting calcium carbonate. 6. Calcitriol. 7. Prednisone 5 mg once a day. 8. Pantoprazole 40 mg. 9. Nifedipine 60 mg. 10. 10 mg. 11. Sliding scale. 12. Zofran 4 mg q.6 h. The patient's laboratory values, ova and parasite are pending. Blood culture is pending. Urine culture is pending. Lactoferrin was positive. ASSESSMENT 1. Acute gastroenteritis. 2. Colitis. 3. Acute kidney injury. 4. History of renal transplant. 5. History of diabetes mellitus. 6. Hypertension. 7. Atrial fibrillation. PLAN: Continue the patient on antibiotics. The patient looks very stable today. A consult with Dr. Hansen has been done for hydronephrosis. Will keep the Sapulding in as per his recommendation. The patient will be continued on antibiotics. Further recommendations per clinical course. Will continue to monitor the patient. Will continue monitoring her I's and O's, and also her electrolytes. Dr. Hubbard, nephrology, is on the case too. As far as her renal transplant, antirejection medication will be continued. For AFib, will continue on her apixaban. Job#: [id number] BHASKAR
[2018-02-01] MEDS ORDERED: SODIUM CHLORIDE 0.9% 250ML 250 ML ONE (08:08)
[2018-02-01] MEDS: MAGNESIUM OXIDE 400 MG TAB PO SCH ×2 (08:42→17:12)
[2018-02-01] MEDS: PREDNISONE 5 MG TAB PO SCH (08:42)
[2018-02-01] MEDS: OYST-CAL-D 500MG TABLET PO SCH ×2 (08:42→17:12)
[2018-02-01] MEDS: PANTOPRAZOLE SOD 40 MG TABEC PO SCH (08:42)
[2018-02-01] MEDS: CALCITRIOL 0.25 MCG CAP PO SCH (08:42)
[2018-02-01] MEDS: MYCOPHENOLATE MOFETIL 250 MG CAP PO SCH ×2 (08:43→17:12)
[2018-02-01] MEDS: TACROLIMUS 1 MG CAP PO SCH ×2 (08:43→17:12)
[2018-02-01] MEDS: APIXABAN 5 MG TABLET PO SCH ×2 (08:43→17:12)
[2018-02-01] MEDS: ESCITALOPRAM OXALATE 10 MG TAB PO SCH (08:43)
[2018-02-01] MEDS: NIFEDIPINE CR 30 MG TAB PO SCH (09:00)
[2018-02-01] MEDS: PHENAZOPYRIDINE HCL 100 MG TAB PO PRN (15:40)
--- NOTE | 2018-02-01 16:47 | Consultation ---
DATE OF CONSULTATION: February 01, 2018 REASON FOR CONSULTATION: Fever and chills, UTI. HISTORY OF PRESENT ILLNESS: Ms. Cassie Finn is a very pleasant 67-year-old female with history of obesity, atrial fibrillation, depression, diabetes mellitus, hypertension, gastroparesis, neuropathy, reflux esophagitis status post renal transplant. Comes into the emergency room complaining of abdominal pain for 2 days so she came here with nausea and some discomfort. The abdominal pain was diffuse, mainly in the right upper quadrant. There was nausea, vomiting and diarrhea. The patient came into the emergency room. A Spaulding catheter was inserted. Surgery was consulted. The patient is currently laying in bed complaining of abdominal pain diffuse. PAST MEDICAL HISTORY: As above. PAST SURGICAL HISTORY: Renal transplant. ALLERGIES: NKA. SOCIAL HISTORY: There is no smoking, drug abuse or alcohol abuse. FAMILY HISTORY: Hypertension and diabetes. MEDICATIONS: She is currently on metronidazole. 2 fluoxetine Procardia. REVIEW OF SYSTEMS: GENERAL: She is just not feeling well. HEENT: There is no headache, visual changes or hearing changes. GI : There is some nausea. She said the vomiting is better. LABORATORY DATA: Reviewed. Her white count on admission was 12.03, hemoglobin 10.4, hematocrit 35. . Her sodium 133, potassium 3.6, creatinine 1.1. Creatinine 1.42. Liver enzymes within normal limits. C. Diff is negative. Stool's lactoferrin was positive. Blood cultures and urine cultures no growth in 24 hours. The patient had abdominal and pelvic CT when she first came with finding of enteritis, likely infectious, left adrenal node, cardiac cirrhosis, atrophic kidney, right lower quadrant renal transplant. MEDICATIONS: She is currently on metronidazole, cefoxitin, Procardia. PHYSICAL EXAMINATION: GENERAL: She is currently alert and oriented and does not seem to be in acute distress. She has diffuse discomfort. HEENT: She is not icteric. NECK: Supple. CHEST: Clear. HEART: S1 and S2, no S3 and no murmur. ABDOMEN: Soft. Bowel sounds are present. No tenderness. EXTREMITIES: No edema. IMPRESSION: 1. Gastroenteritis, infectious. I think this is a component of dehydration. 2. Acute kidney injury. The patient is status post renal transplant. RECOMMENDATIONS: I agree with Flagyl and cefoxitin for the time being. Recheck CBC. Recheck chem panel as ordered. Will see how she is going to do clinically over the next 24 to 48 hours. If there is no improvement, we may have to do a colonoscopy. For the time being, continue with plan as ordered. Job#: [id number] GH
[2018-02-01] MEDS: ONDANSETRON HCL INJ 2 MG/ML VIAL IV PRN (17:18)
--- NOTE | 2018-02-01 19:30 | NUR ---
RECIEVED REPORT FROM OFF GOING NURSE ОЛЕГ JEAN AT PT'S BEDSIDE. INTRODUCED MYSELF TO PT, PT STABLE AT THIS TIME, DENIES PAIN AND DISCOMFORTS TO ABDOMEN OR STOMACH AREA, PRESENTED EVERETTE CHACKO TO TRANSLATE
[2018-02-01] MEDS ORDERED: ALPRAZOLAM 0.25 MG TAB PO PRN (19:45)
[2018-02-01] MEDS: METOCLOPRAMIDE HCL 10 MG TAB PO SCH (21:49)
--- NOTE | 2018-02-01 22:30 | NUR ---
PT ASSISTED UP OOB TO BR, DEFECATED LG AMT OF LOOSE STOOL, THEN ASSISTED BACK TO BED AND MADE COMFORTABLE.
--- NOTE | 2018-02-02 01:00 | NUR ---
DR. ERICKSON HERE TO ASSESS PT'S STATUS, HE SPOKE WITH HER, PT ON ANTIBIOTICS. ASSISTED, TO BR AGAIN, THEN BACK TO BED SR UP X 2 CALL PINTO IN REACH.
--- NOTE | 2018-02-02 02:00 | NUR ---
PT TURNED AND REPOSITIONED THROUGHOUT THE NIGHT, SON QUETA SLEPT AT BEDSIDE, DENIES PAIN UPON QUESTIONING THE PATIENT, ACTUALLY ATTEMPTS TO GET OOB AT TIMES. PT HAD TO BE REPOSITIONED SEVERAL TIMES DUE TO TAKING FINGER PROBE OFF.
[2018-02-02] MEDS: CEFOXITIN 1GM/ NS 50ML 50 ML IV SCH ×3 (03:00→20:17)
[2018-02-02 04:30] VITALS: BP 123/65
[2018-02-02] MEDS: METRONIDAZOLE 500MG/NS 100ML 100 ML IV SCH ×4 (04:48→19:44)
[2018-02-02] MEDS: ONDANSETRON HCL INJ 2 MG/ML VIAL IV PRN (04:52)
--- NOTE | 2018-02-02 05:22 | NUR ---
DR MARIE HERE TO ASSESS PT'S STATUS, ORDER GIVEN FOR PAIN MEDICATION AND REQUESTING PHYSICAL THERAPY
[2018-02-02 05:24] LABS: BASOPHILS % 0.2 % (0.0-1.0); EOSINOPHILS # (AUTO) 0.1 (0.0-0.4); EOSINOPHILS % 1.2 % (0.0-6.0); HEMATOCRIT 30.9 % (34.2-44.1); HEMOGLOBIN 9.2 g/dL (12.0-16.0); LYMPHOCYTES # (AUTO) 1.1 (1.0-3.2); LYMPHOCYTES % 17.8 % (18.0-39.1); MEAN CORPUSCULAR HEMOGLOBIN 22.9 pg (28-32); MEAN CORPUSCULAR HGB CONC 29.8 g/dL (31-35); MEAN CORPUSCULAR VOLUME 77.1 fL (81-99); MONOCYTES # (AUTO) 0.7 (0.2-0.8); NEUTROPHILS % 68.5 % (38.7-80.0); PLATELET COUNT 169 x10e3/uL (140-360); RED BLOOD COUNT 4.01 x10e6/uL (3.6-5.1); RED CELL DISTRIBUTION WIDTH 18.9 % (11.7-14.4)
--- NOTE | 2018-02-02 05:36 | NUR ---
PT RESTING IN BED SHE STATES SHE DIDNT SLEEP WELL AT ALL LAST NIGHT DIDN'T SLEEP WELL. TOLERATING ANTIBIOTICS WELL.
[2018-02-02 05:41] LABS: ANION GAP 15.2 mmol/L (8-16); CALCIUM 8.4 mg/dL (8.4-10.2); CREATININE, SERUM 1.16 mg/dL (0.57-1.11); POTASSIUM 3.2 mmol/L (3.5-5.1)
[2018-02-02 07:00] LABS: LARGE PLATELETS RARE; PLATELET ESTIMATE ADEQUATE
[2018-02-02 07:01] LABS: PLATELET MORPHOLOGY COMMENT NORMAL; RBC MORPHOLOGY COMMENT NORMAL
[2018-02-02] MEDS: INSULIN REGULAR, HUMAN 100 UNIT/1 ML 3ML VIAL SQ SCH ×4 (07:30→21:17)
--- NOTE | 2018-02-02 07:32 | NUR ---
REPORTED OFF TO ARTHUR,,,RN
--- NOTE | 2018-02-02 09:00 | NUR ---
DR. HE ROUNDING TODAY MADE AWARE DR. KEN ROSALES WROTE ORDERS NOT TO REMOVE AVALOS CATHETER FROM PATIENT SHE IS TO GO HOME WITH THE AVALOS, AND FOLLOW UP IN OFFICE. PATIENT DOES NOT WANT TO COMPLY WITH MD ORDERS AND IS REQUESTING AVALOS TO BE REMOVED WHEN SHE IS DISCHARGED HOME, DR. HE SPOKE WITH HER SON INFORMED HIM THE NEED FOR CATHETER TO STAY DUE TO BLADDER NOT EMPTING URINE COMPLETELY, AND CAUSING UTI, THEREFORE AVALOS NEEDS TO STAY IN PLACE, AND FOLLOW UP IN OFFICE. PATIENT WAS INFORMED THAT IF REMOVED IT WOULD BE AGAINST MEDICAL ADVICE AND TO NOTIFY CHARGE NURSE.
[2018-02-02] MEDS: TACROLIMUS 1 MG CAP PO SCH ×2 (10:41→16:46)
[2018-02-02] MEDS: MYCOPHENOLATE MOFETIL 250 MG CAP PO SCH ×2 (10:42→16:45)
[2018-02-02] MEDS: NIFEDIPINE CR 30 MG TAB PO SCH (10:42)
[2018-02-02] MEDS: PREDNISONE 5 MG TAB PO SCH (10:42)
[2018-02-02] MEDS: PANTOPRAZOLE SOD 40 MG TABEC PO SCH (10:42)
[2018-02-02] MEDS: OYST-CAL-D 500MG TABLET PO SCH ×2 (10:42→16:46)
[2018-02-02] MEDS: ESCITALOPRAM OXALATE 10 MG TAB PO SCH (10:42)
[2018-02-02] MEDS: APIXABAN 5 MG TABLET PO SCH ×2 (10:42→16:45)
[2018-02-02] MEDS: MAGNESIUM OXIDE 400 MG TAB PO SCH ×2 (10:42→16:45)
[2018-02-02] MEDS: CALCITRIOL 0.25 MCG CAP PO SCH (10:43)
[2018-02-02 10:45] VITALS: BP 128/81
--- NOTE | 2018-02-02 10:52 | NUR ---
Called Dr. Carlos Enrique Ruiz at patient's request, informed MD, patient is requesting a diet to eat food because she is hungry, received orders to give patient diabetic/renal diet.
[2018-02-02] MEDS: PHENAZOPYRIDINE HCL 100 MG TAB PO PRN ×2 (10:57→20:01)
[2018-02-02] MEDS: TRAMADOL HCL 50 MG TAB PO PRN ×2 (10:58→20:00)
[2018-02-02 12:34] VITALS: BP 134/67
[2018-02-02 13:10] VITALS: BP 109/46
[2018-02-02] MEDS ORDERED: POTASSIUM CHLORIDE 20 MEQ TAB CR PO ONE (15:00)
--- NOTE | 2018-02-02 19:00 | NUR ---
RECEIVED REPORT FROM ОЛЕГ OJEDA RN AT PT'S BEDSIDE. PT AAOX3, MOSTLY STATELESS SPEAKING. PT HAS AVALOS CATHETER DRAING TO GRAVITY MANDY COLORED URINE. O2 ON AT 2L PER N.C. PT C/O LOW BACK PAIN, INFORMED HER THIS NURSE WILL ADMINISTER PAIN MEDICATION. PT VERBALIZED OK
[2018-02-02 20:18] VITALS: BP 112/75
[2018-02-02 20:32] VITALS: BP 112/75
[2018-02-02] MEDS: METOCLOPRAMIDE HCL 10 MG TAB PO SCH (21:30)
--- NOTE | 2018-02-02 21:40 | NUR ---
PAGED DDRTorrie TAYLOR TO ASK FOR ORDER OF LIDOCAINE TO PUT TOPICALLY ON URETHRA AREA FOR DISCOMFORTS
--- NOTE | 2018-02-02 21:51 | NUR ---
DR. TAYLOR CALLED BACK AND GAVE ORDER FOR LIDOCAINE TOPICALLY
[2018-02-02] MEDS ORDERED: LIDOCAINE HCL 2% JELLY 5 ML TUBE TOP PRN (23:00)
[2018-02-03] VITALS: BP 133/72
--- NOTE | 2018-02-03 | NUR ---
UP AMBULATED TO BATHROOM, THEN ASSISTED BACK TO BED, & MADE CMFORTABLE
[2018-02-03] MEDS: TRAMADOL HCL 50 MG TAB PO PRN (01:30)
[2018-02-03] MEDS: METRONIDAZOLE 500MG/NS 100ML 100 ML IV SCH ×2 (01:45→06:13)
--- NOTE | 2018-02-03 02:30 | NUR ---
DR Peewee ERIKCSON HERE TO ASSESS PT'S STATUS. PT CRYING OUT STATING HER LEG HURT,,NURSE ASK IF SHE HAD ARTHRITIS, PT STATED YES.
[2018-02-03] MEDS: CEFOXITIN 1GM/ NS 50ML 50 ML IV SCH (03:12)
[2018-02-03 04:00] VITALS: BP 121/72
[2018-02-03 05:42] LABS: ANION GAP 15.8 mmol/L (8-16); CALCIUM 8.8 mg/dL (8.4-10.2); CREATININE, SERUM 1.15 mg/dL (0.57-1.11); POTASSIUM 3.8 mmol/L (3.5-5.1)
[2018-02-03 06:18] LABS: FOLATE 17.7 ng/mL (7.0-15.4)
[2018-02-03 06:33] LABS: MAGNESIUM 2.3 MG/DL (1.3-2.1); PHOSPHORUS 3.5 MG/DL (2.3-4.7)
[2018-02-03 06:55] LABS: FERRITIN 65.5 ng/mL (4.63-204.00)
--- NOTE | 2018-02-03 07:07 | NUR ---
REORTED OFF TO ONCOMING NURSE PT IN GOOD CONDITION
[2018-02-03] MEDS: INSULIN REGULAR, HUMAN 100 UNIT/1 ML 3ML VIAL SQ SCH (07:08)
--- NOTE | 2018-02-03 07:20 | Progress Note ---
DATE: SUBJECTIVE: The patient is here for acute gastroenteritis and nausea, vomiting and diarrhea which have resolved. The patient is feeling better. The patient has a Spaulding catheter secondary to hydronephrosis. The patient otherwise has walked a few steps yesterday and felt better. OBJECTIVE VITAL SIGNS: Temperature is 98.3, pulse of 78, respirations of 18, blood pressure is 133/72, pulse oximetry of 100% at 2 liters of oxygen. HEENT: Normocephalic and atraumatic. Pupils are reactive to light and accommodation. CVS: S1, S2 regular. ABDOMEN: Nontender and nondistended. EXTREMITIES: No clubbing, no cyanosis. Positive for trace edema. LABORATORY VALUES: Today's chemistries show sodium of 133, potassium 3.8, BUN of 25, and creatinine of 1.15 and the patient has low iron. The iron is 33, TIBC of 315, percent saturation of 105 and transferrin was 225. Ferritin is pending. Folate was 17.75 and vitamin B12 of 755. ASSESSMENT AND PLAN 1. Acute gastroenteritis, colitis. The patient is to continue antibiotics, very stable at this time. Cultures have been negative. We will continue to monitor the patient and possible discharge with medications and to possible home. 2. Hy[address]one[address]rosis. Dr. Hansen is seeing the patient. We will continue the Spaulding and have him see the patient as an outpatient. 3. History of presence of renal transplant. Continue with her anti-rejection medications. 4. Acute kidney injury and chronic kidney disease. The patient will be continued on fluids and can follow up with Dr. Hubbard and/or tar worker as an outpatient basis and also her kidney transplant team. 5. Atrial fibrillation. Continue on her Eliquis 5 mg twice a day. Further recommendations and clinical course, we will get physical therapy to evaluate her and possible discharge with home health today. Job#: [id number] BOO
--- NOTE | 2018-02-03 07:46 | NUR ---
SPOKE TO PATIENT AND SON INFORMED OF DISCHARGE PLANNING, SON STATES AVALOS IS TO BE DC'D UPON DISCHARGE THIS RN INFORMED THAT WAS TOLD BY PT TO GO HOME WITH AVALOS SON STATES THEY ARE REFUSING AVALOS AND WILL NOT GO HOME UNTIL IT IS OUT. MD MONET PAGED TO NOTIFY. AWAITING CALLBACK
[2018-02-03] MEDS: PREDNISONE 5 MG TAB PO SCH (08:01)
[2018-02-03] MEDS: PANTOPRAZOLE SOD 40 MG TABEC PO SCH (08:01)
[2018-02-03] MEDS: OYST-CAL-D 500MG TABLET PO SCH (08:01)
[2018-02-03] MEDS: ESCITALOPRAM OXALATE 10 MG TAB PO SCH (08:01)
[2018-02-03] MEDS: CALCITRIOL 0.25 MCG CAP PO SCH (08:01)
[2018-02-03] MEDS: MAGNESIUM OXIDE 400 MG TAB PO SCH (08:01)
[2018-02-03] MEDS: TACROLIMUS 1 MG CAP PO SCH (08:01)
[2018-02-03] MEDS: APIXABAN 5 MG TABLET PO SCH (08:01)
[2018-02-03] MEDS: MYCOPHENOLATE MOFETIL 250 MG CAP PO SCH (08:01)
[2018-02-03] MEDS: NIFEDIPINE CR 30 MG TAB PO SCH (08:01)
--- NOTE | 2018-02-03 08:03 | NUR ---
Met with patient who speaks minimal [place]. Spoke on telephone with her son, . He stated she already has home health, but he does not remember the name of the company. CM explained a packet for home health will be sent home with patient, and to please give it to them with the order to resume home health. He verbalized understanding and agreed with this, as well as patient agreed. Nurse present in room during this. Clinical and home health order placed in pt bedside folder. Pt states will give to her home health nurse. CM notified nurse that pt is ready for dc from CM standpoint.
--- NOTE | 2018-02-03 08:10 | NUR ---
SPOKE TO STATES HE IS AWARE FAMILY AND PATIENT IS REFUSING AVALOS BUT WILL NOT BE GIVING ORDER TO DISCONTINUE PT CONTINUES TO NEED AVALOS, STATES HE SPOKE AT LENGTH WITH PATIENT AND FAMILY. PT CONTINUES TO REFUSE. MADE AWARE THAT AVALOS WOULD BE DC'D PER PATIENT AND FAMILY REQUEST.
--- NOTE | 2018-02-03 08:25 | NUR ---
AVALOS DC'D, RIRobert DC'D SECURED WITH 4X4 PRESSURE DRESSING. PT AWARE DTV AND TO NOTIFY RN,
--- NOTE | 2018-02-03 10:20 | NUR ---
PATIENT DISCHARGED AT THIS TIME. PT HAD 1 FULL VOID TAKEN VIA WHEELCHAIR TO CAR.
== END 2018-02-03 10:34 | disposition left against medical advice (07) | DRG 392 ==
LOC: ER 04:11 → ERHOLD 06:17 → IMCU 02-01 00:49
PROVIDERS: ADMIT Family Medicine; ATTEND Family Medicine
DX: A08.4 Viral intestinal infection, unspecified (principal); N17.9 Acute kidney failure, unspecified; Z94.0 Kidney transplant status; E87.1 Hypo-osmolality and hyponatremia; E86.0 Dehydration; E11.40 Type 2 diabetes mellitus with diabetic neuropathy, unspecified; E11.43 Type 2 diabetes mellitus with diabetic autonomic (poly)neuropathy; K31.84 Gastroparesis; I12.9 Hypertensive chronic kidney disease with stage 1 through stage 4 chronic kidney disease, or unspecified chronic kidney disease; N18.9 Chronic kidney disease, unspecified; E11.22 Type 2 diabetes mellitus with diabetic chronic kidney disease; I48.91 Unspecified atrial fibrillation; E27.9 Disorder of adrenal gland, unspecified; R33.9 Retention of urine, unspecified; F32.9 Major depressive disorder, single episode, unspecified; N31.9 Neuromuscular dysfunction of bladder, unspecified; K21.0 Gastro-esophageal reflux disease with esophagitis; R41.82 Altered mental status, unspecified; K42.9 Umbilical hernia without obstruction or gangrene; D64.9 Anemia, unspecified; Z79.84 Long term (current) use of oral hypoglycemic drugs; Z82.49 Family history of ischemic heart disease and other diseases of the circulatory system; Z83.3 Family history of diabetes mellitus; Z79.01 Long term (current) use of anticoagulants; Z79.52 Long term (current) use of systemic steroids; Z79.899 Other long term (current) drug therapy; Z88.0 Allergy status to penicillin
CPT/HCPCS: 36415; 36600; 51700; 70450; 71045; 74176; 80048; 80053; 80197; 81001; 82140; 82150; 82550; 82553; 82607; 82728; 82746; 82805; 82948; 83540; 83630; 83690; 83735; 84100; 84466; 84484; 85025; 85045; 85610; 85730; 87040; 87045; 87086; 87177; 87493; 93005; 94640; 96372; 99284; J1940; J2001; J2405; J2550; J7030; J7040; J7050; J7507; J7512